=== PATIENT | female | born 1940 | race Caucasian/White ===

== ENCOUNTER 2016-11-22 08:00 | Outpatient (CLI) | payer MEDICARE, OTHER | END 2016-11-22 08:01 | disposition home or self-care (01) | DX: Z01.812 Encounter for preprocedural laboratory examination (principal); I10 Essential (primary) hypertension ==

== ENCOUNTER 2016-11-24 12:59 | Outpatient (CLI) | payer MEDICARE, OTHER | END 2016-11-24 13:00 | disposition home or self-care (01) | DX: Z78.0 Asymptomatic menopausal state (principal) ==

== ENCOUNTER 2016-12-06 07:30 | Inpatient (IN) | payer MEDICARE, OTHER ==
[2016-12-06] MEDS ORDERED: ceFAZolin 2 GM/50 ML 50 ML IV ONE (08:42)
[2016-12-06] MEDS ORDERED: LACTATED RINGERS 1,000 ML IV ONE ×2 (08:52→12:18)
[2016-12-06] MEDS ORDERED: PROPOFOL 200 MG/20 ML VIAL IVP ONE (11:08)
[2016-12-06] MEDS ORDERED: ONDANSETRON 4 MG/2 ML VIAL IVP ONE (11:08)
[2016-12-06] MEDS ORDERED: DEXAMETHASONE 4 MG/ML VIAL IVP ONE (11:08)
[2016-12-06] MEDS ORDERED: MIDAZOLAM 2 MG/2 ML VIAL IVP ONE (11:08)
[2016-12-06] MEDS ORDERED: MORPHINE PF 5 MG/10 ML AMP EP ONE (11:08)
[2016-12-06] MEDS ORDERED: GLYCOPYRROLATE 1 MG/5 ML VIAL IVP ONE (11:08)
[2016-12-06] MEDS ORDERED: LIDOCAINE-MPF 2% 5 ML VIAL IM ONE (11:08)
[2016-12-06] MEDS ORDERED: ePHEDrine 50 MG/ML AMP IVP ONE (11:08)
[2016-12-06] MEDS ORDERED: SODIUM CHLORIDE 0.9% 10 ML VIAL IV ONE (11:08)
[2016-12-06] MEDS ORDERED: TRANEXAMIC ACID 1,000 MG/10 ML VIAL IV ONE (11:08)
[2016-12-06] MEDS ORDERED: ROPIVACAINE 0.5% PF 20 ML AMPULE SUBQ ONE (12:06)
[2016-12-06] MEDS ORDERED: KETOROLAC 15 MG/ML VIAL IVP ONE ×2 (12:06)
[2016-12-06] MEDS ORDERED: MORPHINE PF 5 MG/10 ML AMP SUBQ ONE (12:07)
[2016-12-06] MEDS ORDERED: BUPIVACAINE 0.5% PF 30 ML VIAL SUBQ ONE ×2 (12:08)
[2016-12-06] MEDS ORDERED: EPINEPHrine 1 MG/ML AMP IVP ONE (12:08)
--- NOTE | 2016-12-06 13:31 | PROVIDER PROGRESS NOTE ---
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
[2016-12-06] MEDS ORDERED: HYDROmorphone 1 MG/ML SYRINGE IVP PRN (13:32)
[2016-12-06] MEDS ORDERED: SODIUM CHLORIDE FLUSH 0.9% 10 ML SYRINGE IVP PRN (13:32)
[2016-12-06] MEDS ORDERED: ACETAMINOPHEN 1,000 MG/100 ML 100 ML IV PRN (13:32)
[2016-12-06] MEDS ORDERED: BISACODYL 10 MG SUPP PR PRN (13:32)
[2016-12-06] MEDS: SODIUM CHLORIDE FLUSH 0.9% 10 ML SYRINGE IVP SCH ×2 (14:32→20:04)
[2016-12-06] MEDS: SODIUM CHLORIDE 0.45% 1,000 ML IV SCH (14:32)
[2016-12-06] MEDS: oxyCOD/ACETAMIN 5 MG/325 MG TABLET PO PRN ×2 (14:43→17:33)
--- NOTE | 2016-12-06 15:07 | OPERATIVE REPORT ---
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 NAME OF PROCEDURE: Revision of the right knee arthroplasty from an Corinth unicompartmental replacemen t to a cemented total knee replacement. SURGEON: Cinthya Solorzano MD ANESTHESIA: Spinal and general. INDICATIONS FOR SURGERY: The patient is a 76-year-old female who is status post an Corinth medial comp artment arthroplasty of her right knee who has had persistent pain in her knee, mainly in the lateral and patellofemoral joint since that time. She now desires revision of her knee to a total knee arthr oplasty, which has been the recommendation of me, as well as her original operating surgeon, Dr. Lady hedrick. The patient has persistent enlargement of the knee, swelling and effusion and walks with a limp. FINDINGS AT SURGERY: The patient's knee had a large, pale yellow synovial effusion. There was inflamm ation and synovitis noted. The patient's components were overgrown with some scar tissue but were yolanda rly easily removed with a small osteotome and a punch. There was very little cavitation in her bone l oss beneath the tibia. The patient had hypertrophic spurring of all of her knee compartments and aidee re articular cartilage degeneration in the lateral compartment and a posterior horn meniscal tear. Cr uciate ligament was intact. The patella had [id number] articulation on the underside of the patella . DESCRIPTION OF OPERATIVE PROCEDURE: The patient was taken to the operating room, was given a general anesthetic and spinal anesthetic. She was positioned supine on an OR table. Tourniquet was placed on her thigh. Her knee and leg were sterilely prepped and draped in standard fashion. After a timeout, t ourniquet was inflated to 350 mmHg. The incision was placed around the medial aspect of the knee thro ugh incorporating prior scar into the incision and resecting that initial broad scar. The incision wa s dissected down through soft tissue, at which point Ethibond suture remnants were identified in the incision and allowed further dissection through the medial capsule and into the knee. Some of the sof t tissue was debrided from around the front of the knee, and the patella was cut to facilitate exposu re, cutting it down from 25 to 16 mm and removing osteophytes from all the compartments. At this poin t, the knee was able to be flexed, and the intramedullary guide placed for the distal femoral cutting block, which was applied to the femur and fixed in place with pins, and the distal cut made. After t his, the retractors were positioned to expose the Corinth femoral component, and a careful osteotome w as used to pry this off the femur uneventfully. The remaining resection of bone incorporated the base of this and removed all cement. A 4 in 1 capture was applied and the cuts made for the femoral compo nent. The tibia was then exposed with retractors, the external tower applied, and the slope and depth of cut and rotation of cut was set for the proximal tibia. Prior to cutting the tibia, the poly had been extracted from the Corinth and the baseplate lifted using a small osteotome to free it up. The lo ose cement was removed, leaving behind a small amount of cement that was not chiseled out down in the trough area of where the implant had been. A very conservative cut was taken, and it seemed to leave only a small step off between lateral and medial compartments into an area where the Corinth had been , and when appropriate sizing was done for the tibial baseplate and broach preparation for the stemme d implant, it appeared that the impaction would leave a slightly thicker cement mantle that was encas ed in a rim of cortical bone and was satisfactory on that side, so preparation was made for cementing . After trial implantation, it was satisfactory. The trials were removed. The implants were opened, a nd cement was mixed. The sequence of cementing began first with the natural tibia base plate with 5 d egree stem size E was cemented in place. Then, the poly was added, which was a Persona articular surf dayanna medial congruent 14 mm height for size EF, followed by the Persona size 10 femur standard width. A stem had been applied to the tibial baseplate, and this was a 30 mm length tapered stem. The constr uct all cemented in place was stable, and all excess cement was removed. The patella was then cemente d in place and it being an all poly patella 32 mm diameter 8.5 mm thickness, and this restored the na tural height of the patella. The cement was allowed to harden. The knee was flushed thoroughly. Closu re was with FiberWire in the soft tissue, Vicryl closure of subcutaneous tissue out to Prolene closur e of skin. Prior to any closure, infiltration had been performed with a mix of Toradol, ropivacaine, Marcaine, saline and epinephrine. The patient's knee was carefully dressed, and the patient was taken to recovery room in stable condition. ESTIMATED BLOOD LOSS: Minimal. COMPLICATIONS: None. SPONGE AND NEEDLE COUNTS: Correct. JOB #: [id number] EXT JOB #:[id number]
--- NOTE | 2016-12-06 15:17 | XRAY Report ---
TWO-VIEW RIGHT KNEE: 12/06/2016 CLINICAL INDICATION: Hardware revision. COMPARISON: 11/21/2016 FINDINGS: Frontal and lateral views of the right knee demonstrate removal of the medial hemiarthropl asty and placement of a right total knee replacement. There is no evidence of fracture or hardware c omplication. Subcutaneous gas is noted. IMPRESSION: EXPECTED POSTOPERATIVE CHANGES OF REMOVAL OF MEDIAL HEMIARTHROPLASTY AND PLACEMENT OF A COMPLETE KNEE REPLACEMENT. JOB #: [id number] EXT JOB #:[id number]
[2016-12-06] MEDS: ceFAZolin 2 GM/50 ML 50 ML IV SCH (19:46)
[2016-12-06] MEDS: ASPIRIN 325 MG TABLET PO SCH (20:01)
[2016-12-06] MEDS: ONDANSETRON 4 MG/2 ML VIAL IVP PRN (20:29)
[2016-12-07] MEDS: SODIUM CHLORIDE 0.45% 1,000 ML IV SCH (00:25)
[2016-12-07] MEDS: oxyCOD/ACETAMIN 5 MG/325 MG TABLET PO PRN ×3 (02:13→08:28)
[2016-12-07] MEDS: ceFAZolin 2 GM/50 ML 50 ML IV SCH ×3 (02:14→17:27)
[2016-12-07] MEDS: SODIUM CHLORIDE FLUSH 0.9% 10 ML SYRINGE IVP SCH ×3 (04:55→22:07)
[2016-12-07 06:05] LABS: HCT - HEMATOCRIT 35.5 % (37.0-47.0); HGB - HEMOGLOBIN 12.2 g/dL (12.0-16.0)
[2016-12-07 06:17] LABS: CALCIUM 8.2 mg/dL (8.5-10.3); CREATININE 0.9 mg/dL (0.4-1.0); POTASSIUM 3.2 mmol/L (3.5-5.0)
[2016-12-07] MEDS: ASPIRIN 325 MG TABLET PO SCH ×2 (08:28→21:49)
[2016-12-07] MEDS: hydroCHLOROthiazide 25 MG TABLET PO SCH (08:28)
[2016-12-07] MEDS: NS W/20 MEQ KCL 1,000 ML IV SCH (09:23)
--- NOTE | 2016-12-07 09:49 | PROVIDER PROGRESS NOTE ---
Subjective - General Admit Date: 12/06/16 Procedure Date: 12/06/16 Post Op Days: 1 Procedure Performed: Revision Total Knee aRTHROPLASTY - Review of Systems Wound/Incisions: positive: Dressing dry and intact General: positive: Other (controlled pain in right knee) Musculoskeletal: positive: Joint pain, Joint swelling Objective - Patient Data Reviewed Vital Signs: Yes Vital Signs: Vital Signs x48h Temp Pulse Resp BP Pulse Ox 12/07/16 07:55 36.5 C 59 L 18 116/75 95 12/07/16 04:30 36.5 C 67 16 105/64 97 Intake & Output: Intake and Output Totals x24h 12/05/16 12/06/16 12/07/16 23:59 23:59 23:59 Intake Total 1920 1454 Output Total 1125 350 Balance 795 1104 - Lab Results Lab Results: 12/07/16 05:58 12/07/16 05:58 Other Lab Results: Lab Results x24hrs 12/07/16 12/07/16 Range/Units 05:58 05:58 Hgb 12.2 (12.0-16.0) g/dL Hct 35.5 L (37.0-47.0) % Sodium 131 L (135-145) mmol/L Potassium 3.2 L (3.5-5.0) mmol/L Chloride 97 L (101-111) mmol/L Carbon Dioxide 26 (21-32) mmol/L Anion Gap 8.0 (6-13) BUN 16 (6-20) mg/dL Creatinine 0.9 (0.4-1.0) mg/dL Estimated GFR (MDRD) 61 L (>89) Glucose 133 H (70-100) mg/dL Calcium 8.2 L (8.5-10.3) mg/dL - Imaging Results Radiology Imaging: positive: EMP read indepedently - Current Medications Current Medications: Current Medications Generic Name Dose Route Start Last Admin Trade Name Freq PRN Reason Stop Dose Admin Aspirin 325 mg 12/06/16 21:00 12/07/16 08:28 Bebe PO 325 mg BID LUIS ANGEL Administration Hydrochlorothiazide 25 mg 12/07/16 09:00 12/07/16 08:28 Hydrodiuril PO 25 mg DAILY LUIS ANGEL Administration Hydromorphone HCl 1 mg 12/06/16 13:32 12/06/16 19:54 Dilaudid Inj IVP 1 mg Q2HR PRN Administration Breakthrough Pain Acetaminophen 100 mls @ 400 mls/hr 12/06/16 13:32 12/06/16 16:06 Ofirmev IV 400 mls/hr Q6HR PRN Administration PAIN Potassium Chloride/Sodium Chloride 1,000 mls @ 80 mls/hr 12/07/16 09:00 09:23 Normal Saline 0.9% W/20 Meq Kcl IV 80 mls/hr .[id number] LUIS ANGEL Administration Cefazolin Sodium/Dextrose 50 mls @ 100 mls/hr 12/07/16 09:00 12/07/16 09:23 Ancef 2 Gm/50 Ml IV 12/10/16 05:00 100 mls/hr Q8H LUIS ANGEL Administration Ondansetron HCl 4 mg 12/06/16 13:32 12/06/16 20:29 Zofran Inj IVP 4 mg Q6HR PRN Administration Nausea / Vomiting Oxycodone/Acetaminophen 1 tab 12/06/16 13:32 12/07/16 08:28 Percocet 5 Mg/325 Mg PO 1 tab Q4HR PRN Administration PAIN Sodium Chloride 10 ml 12/06/16 14:00 12/07/16 07:12 Normal Saline Flush 0.9% IVP Not Given Q8HR LUIS ANGEL - Physical Exam Wound/Incisions: positive: Healing well, Dressing dry and intact General Appearance: positive: No acute distress Skin: positive: No rash, Warm, Dry Extremities: positive: No pedal edema, Joint swelling Neurologic/Psychiatric: positive: Motor nml, Sensation nml, Mood/affect nml (Lab : Gram stain with scant GM pos. cocci. May be contaminant) Impression/Plan - Problem List Problem List: POD #1 Pt is doing well with pain control. Lab result is definitely concerning. Will wait and watch for final culture IV fluids changed to correct electrolyte abnormalities IV ancef to continue until 48hr culture result available
[2016-12-07] MEDS: ONDANSETRON 4 MG/2 ML VIAL IVP PRN ×2 (09:57→16:17)
[2016-12-07] MEDS ORDERED: PROCHLORPERAZINE 5 MG TABLET PO PRN (11:40)
[2016-12-07] MEDS: HYDROcod/ACETAM 7.5 MG/325 MG TABLET PO PRN ×3 (13:14→21:49)
[2016-12-07] MEDS: CALCIUM CITRATE 250 MG TABLET PO SCH (14:32)
[2016-12-08] MEDS: ceFAZolin 2 GM/50 ML 50 ML IV SCH ×2 (01:24→08:41)
[2016-12-08] MEDS: HYDROcod/ACETAM 7.5 MG/325 MG TABLET PO PRN ×5 (04:49→20:43)
[2016-12-08 06:01] LABS: BASOPHILS # (AUTO) 0.1 10^3/uL (0.0-0.1); BASOPHILS % (AUTO) 0.7 %; EOSINOPHILS # (AUTO) 0.3 10^3/uL (0.0-0.7); EOSINOPHILS % (AUTO) 3.6 %; HCT - HEMATOCRIT 35.1 % (37.0-47.0); HGB - HEMOGLOBIN 11.8 g/dL (12.0-16.0); LYMPHOCYTES # (AUTO) 1.5 10^3/uL (1.5-3.5); LYMPHOCYTES % (AUTO) 16.1 %; MEAN CORPUSCULAR HEMOGLOBIN 31.3 pg (27.0-31.0); MEAN CORPUSCULAR HGB CONC 33.7 g/dL (32.0-36.0); MEAN PLATELET VOLUME 8.8 fL (7.9-10.8); MONOCYTES % (AUTO) 10.3 %; NEUTROPHILS # (AUTO) 6.6 10^3/uL (1.5-6.6); NEUTROPHILS % (AUTO) 69.3 %; RED BLOOD COUNT 3.77 10^6/uL (4.20-5.40); RED CELL DISTRIBUTION WIDTH 13.9 % (12.0-15.0); UNCORRECTED WHITE BLOOD COUNT 9.6 x10^3/uL; WHITE BLOOD COUNT 9.6 x10^3/uL (4.8-10.8)
[2016-12-08] MEDS: SODIUM CHLORIDE FLUSH 0.9% 10 ML SYRINGE IVP SCH ×3 (07:13→20:46)
--- NOTE | 2016-12-08 08:09 | PROVIDER PROGRESS NOTE ---
Subjective - General Admit Date: 12/06/16 Procedure Date: 12/06/16 Post Op Days: 2 Procedure Performed: Revision Total Knee aRTHROPLASTY - Review of Systems Wound/Incisions: positive: Healing well Musculoskeletal: positive: Joint pain, Joint swelling Objective - Patient Data Reviewed Vital Signs: Yes Vital Signs: Vital Signs x48h Temp Pulse Resp BP Pulse Ox 12/08/16 07:57 36.7 C 65 18 144/78 H 92 12/08/16 06:39 37.0 C 67 16 111/73 95 12/08/16 00:28 36.7 C 68 16 101/62 96 Intake & Output: Intake and Output Totals x24h 12/06/16 12/07/16 12/08/16 23:59 23:59 23:59 Intake Total 1920 2884 1272 Output Total 1125 2475 3200 Balance 795 409 -1928 - Lab Results Lab Results: 12/08/16 05:35 12/07/16 05:58 Other Lab Results: Lab Results x24hrs 12/08/16 12/08/16 12/08/16 Range/Units 05:35 05:35 05:35 WBC 9.6 (4.8-10.8) x10^3/uL RBC 3.77 L (4.20-5.40) 10^6/uL Hgb 11.8 L (12.0-16.0) g/dL Hct 35.1 L (37.0-47.0) % MCV 93.0 (81.0-99.0) fL MCH 31.3 H (27.0-31.0) pg MCHC 33.7 (32.0-36.0) g/dL RDW 13.9 (12.0-15.0) % Plt Count 223 (130-450) 10^3/uL MPV 8.8 (7.9-10.8) fL Neut # 6.6 (1.5-6.6) 10^3/uL Lymph # 1.5 (1.5-3.5) 10^3/uL [place] # 1.0 (0.0-1.0) 10^3/uL Eos # 0.3 (0.0-0.7) 10^3/uL Baso # 0.1 (0.0-0.1) 10^3/uL Absolute Nucleated RBC 0.00 x10^3/uL Nucleated RBCs 0.0 /100WBC ESR 40 H (0-30) mm/Hr C-Reactive Protein 6.4 H (0-1.0) mg/dL - Current Medications Current Medications: Current Medications Generic Name Dose Route Start Last Admin Trade Name Freq PRN Reason Stop Dose Admin Acetaminophen/Hydrocodone Bitart 1 tab 12/07/16 11:39 12/08/16 04:49 [place] 7.5/325 PO 1 tab Q4HR PRN Administration PAIN Aspirin 325 mg 12/06/16 21:00 12/07/16 21:49 Beeb PO 325 mg BID LUIS ANGEL Administration Calcium Citrate 250 mg 12/07/16 10:30 12/07/16 14:32 PO 250 mg DAILY LUIS ANGEL Administration Hydrochlorothiazide 25 mg 12/07/16 09:00 12/07/16 08:28 Hydrodiuril PO 25 mg DAILY LUIS ANGEL Administration Acetaminophen 100 mls @ 400 mls/hr 12/06/16 13:32 12/06/16 16:06 Ofirmev IV 400 mls/hr Q6HR PRN Administration PAIN Potassium Chloride/Sodium Chloride 1,000 mls @ 80 mls/hr 12/07/16 09:00 09:23 Normal Saline 0.9% W/20 Meq Kcl IV 80 mls/hr .[id number] LUIS ANGEL Administration Cefazolin Sodium/Dextrose 50 mls @ 100 mls/hr 12/07/16 09:00 12/08/16 01:24 Ancef 2 Gm/50 Ml IV 12/10/16 05:00 100 mls/hr Q8H LUIS ANGEL Administration Ondansetron HCl 4 mg 12/06/16 13:32 12/07/16 16:17 Zofran Inj IVP 4 mg Q6HR PRN Administration Nausea / Vomiting Prochlorperazine Maleate 5 mg 12/07/16 11:40 12/07/16 11:52 Compazine PO 5 mg Q6HR PRN Administration Nausea / Vomiting Sodium Chloride 10 ml 12/06/16 14:00 12/08/16 07:13 Normal Saline Flush 0.9% IVP Not Given Q8HR LUIS ANGEL - Physical Exam Wound/Incisions: positive: Healing well General Appearance: positive: No acute distress Skin: positive: No rash, Warm, Dry Neurologic/Psychiatric: positive: Motor nml, Sensation nml, Mood/affect nml Impression/Plan - Problem List Problem List: POD #2 Pt is improving and having less pain. Wound healing well at dressing change today. Plan continued PT. Culture Neg. at 24hrs. Will monitor and d/c Ancef after today's result if negative.
[2016-12-08] MEDS: CALCIUM CITRATE 250 MG TABLET PO SCH (08:41)
[2016-12-08] MEDS: ASPIRIN 325 MG TABLET PO SCH ×2 (08:41→20:43)
[2016-12-08] MEDS: SENNA 8.6 MG TABLET PO PRN ×2 (08:41→20:44)
[2016-12-08] MEDS: hydroCHLOROthiazide 25 MG TABLET PO SCH (08:42)
[2016-12-08] MEDS: ACETAMINOPHEN 325 MG TABLET PO PRN ×2 (10:27→18:25)
[2016-12-08] MEDS: NS W/20 MEQ KCL 1,000 ML IV SCH ×3 (10:31→20:46)
[2016-12-09] MEDS: NS W/20 MEQ KCL 1,000 ML IV SCH ×2 (07:43→20:04)
[2016-12-09] MEDS: ASPIRIN 325 MG TABLET PO SCH ×2 (08:26→20:03)
[2016-12-09] MEDS: hydroCHLOROthiazide 25 MG TABLET PO SCH (08:26)
[2016-12-09] MEDS: CALCIUM CITRATE 250 MG TABLET PO SCH (08:26)
[2016-12-09] MEDS: SODIUM CHLORIDE FLUSH 0.9% 10 ML SYRINGE IVP SCH ×2 (08:27→20:04)
--- NOTE | 2016-12-09 09:39 | PROVIDER PROGRESS NOTE ---
Subjective - General Admit Date: 12/06/16 Procedure Date: 12/06/16 Post Op Days: 3 Procedure Performed: Revision Total Knee aRTHROPLASTY - Review of Systems Wound/Incisions: positive: Healing well General: positive: Other (controlled pain in right knee) Musculoskeletal: positive: Joint pain, Joint swelling Objective - Patient Data Reviewed Vital Signs: Yes Vital Signs: Vital Signs x48h Temp Pulse Resp BP Pulse Ox 12/09/16 08:00 36.6 C 66 20 137/75 H 94 12/09/16 04:59 36.7 C 64 16 144/83 H 95 Intake & Output: Intake and Output Totals x24h 12/07/16 12/08/16 12/09/16 23:59 23:59 23:59 Intake Total 2884 2532 840 Output Total 2475 3200 Balance 409 -668 840 - Lab Results Lab Results: 12/08/16 05:35 12/07/16 05:58 - Current Medications Current Medications: Current Medications Generic Name Dose Route Start Last Admin Trade Name Freq PRN Reason Stop Dose Admin Acetaminophen 650 - 975 mg 12/06/16 13:32 12/08/16 18:25 Tylenol PO 650 mg Q4HR PRN Administration PAIN Acetaminophen/Hydrocodone Bitart 1 tab 12/07/16 11:39 12/08/16 20:43 [place] 7.5/325 PO 1 tab Q4HR PRN Administration PAIN Aspirin 325 mg 12/06/16 21:00 12/09/16 08:26 Bebe PO 325 mg BID LUIS ANGEL Administration Calcium Citrate 250 mg 12/07/16 10:30 12/09/16 08:26 PO 250 mg DAILY LUIS ANGEL Administration Hydrochlorothiazide 25 mg 12/07/16 09:00 12/09/16 08:26 Hydrodiuril PO 25 mg DAILY LUIS ANGEL Administration Acetaminophen 100 mls @ 400 mls/hr 12/06/16 13:32 12/06/16 16:06 Ofirmev IV 400 mls/hr Q6HR PRN Administration PAIN Potassium Chloride/Sodium Chloride 1,000 mls @ 80 mls/hr 12/07/16 09:00 07:43 Normal Saline 0.9% W/20 Meq Kcl IV Not Given .[id number] LUIS ANGEL Ondansetron HCl 4 mg 12/06/16 13:32 12/07/16 16:17 Zofran Inj IVP 4 mg Q6HR PRN Administration Nausea / Vomiting Prochlorperazine Maleate 5 mg 12/07/16 11:40 12/07/16 11:52 Compazine PO 5 mg Q6HR PRN Administration Nausea / Vomiting Senna 17.2 mg 12/06/16 13:32 12/08/16 20:44 Senokot PO 17.2 mg Q12H PRN Administration Constipation Sodium Chloride 10 ml 12/06/16 14:00 12/09/16 08:27 Normal Saline Flush 0.9% IVP Not Given Q8HR LUIS ANGEL - Physical Exam Wound/Incisions: positive: Healing well Neurologic/Psychiatric: positive: Sensation nml, Mood/affect nml Impression/Plan - Problem List Problem List: POD # 3 Pt is progressing but more PT required for stairs and independent Wound OK D/C Antibiotics with cultures negative.
[2016-12-09] MEDS: HYDROcod/ACETAM 7.5 MG/325 MG TABLET PO PRN ×2 (09:45→20:03)
[2016-12-09] MEDS: SENNA 8.6 MG TABLET PO PRN (12:18)
[2016-12-10] MEDS: SODIUM CHLORIDE FLUSH 0.9% 10 ML SYRINGE IVP SCH (06:16)
--- NOTE | 2016-12-10 08:56 | Discharge Plan ---
Discharge Plan Disposition: Home, Self Care Condition: Good Prescriptions: HYDROcodone/ACET 7.5/325 [[place] 7.5/325] 1 tab PO Q4HR PRN #60 tablet PRN Reason: Pain Aspirin [Bebe] 325 mg PO BID #30 tablet Senna [Senokot] 17.2 mg PO Q12H PRN #14 tablet PRN Reason: Constipation Diet: Regular Activity Restrictions: Wt Bearing as Tolerated Shower Restrictions: Yes (with wound covered) Driving Restrictions: Yes (no driving) Weight Bearing: Other (weight bearing as tolerated) Additional Instructions or Follow Up instructions: Dressing to remain intact, clean and dry Elevate limb prn continue with home exercises to right knee No Smoking: If you smoke, Please STOP! Call for help. Follow-up with: Trisha Tanner DO [Primary Care Provider] - Cinthya Solorzano MD [Provider Admit Priv/Credential] -
[2016-12-10 09:28] VITALS: BP 131/75
[2016-12-10] MEDS: HYDROcod/ACETAM 7.5 MG/325 MG TABLET PO PRN (09:34)
[2016-12-10] MEDS: CALCIUM CITRATE 250 MG TABLET PO SCH (09:34)
[2016-12-10] MEDS: NS W/20 MEQ KCL 1,000 ML IV SCH (09:34)
[2016-12-10] MEDS: ASPIRIN 325 MG TABLET PO SCH (09:34)
[2016-12-10] MEDS: hydroCHLOROthiazide 25 MG TABLET PO SCH (09:34)
[2016-12-19] MEDS ORDERED: SODIUM CHLORIDE FLUSH 0.9% 10 ML SYRINGE IVP PRN (09:39)
[2016-12-19] MEDS ORDERED: VANCOMYCIN PER PHARMACY 0 GM in SODIUM CHLORIDE 0.9% 250 ML IV SCH (10:00)
[2016-12-19] MEDS ORDERED: SODIUM CHLORIDE 0.9% 1,000 ML IV SCH (10:00)
[2016-12-19] MEDS ORDERED: SODIUM CHLORIDE FLUSH 0.9% 10 ML SYRINGE IVP SCH (14:00)
--- NOTE | 2016-12-20 05:48 | DISCHARGE SUMMARY ---
DATE OF ADMISSION: 12/06/2016 DATE OF DISCHARGE: 12/10/2016 ADMISSION DIAGNOSIS: Failed right knee [place] hemiarthroplasty. POSTOPERATIVE DIAGNOSIS: Failed right knee [place] hemiarthroplasty. PROCEDURE: On 12/06/2016, a right knee conversion of partial knee arthroplasty to revision total knee arthroplasty. REASON FOR ADMISSION: The patient is a 76-year-old female who 2 years ago underwent a partial knee re placement of the right knee and subsequent to this had uneventful wound healing, but had ongoing diff use knee pain that was not responding to nonoperative management by 2 different orthopedic surgeons. Ultimately, the advice and opinion of both surgeons was that the patient should have revision of her partial knee to a total knee arthroplasty and the patient was appropriately informed, consented, and prepared for surgery. HOSPITAL COURSE: The patient was admitted on 12/06/2016 and underwent an uneventful surgery, which wa s a revision of a hemiarthroplasty of her right knee to a total knee arthroplasty. In the postoperati ve period, the patient returned to the floor and received standard care post total knee arthroplasty including early mobilization with therapy, as well as IV antibiotic coverage, monitoring her vital si gns and labs. The patient was placed on aspirin 325 mg b.i.d. for prophylaxis of DVT. The patient ear ly on had initial Gram stain results suggesting gram-positive cocci and therefore IV antibiotics were continued to be on 24 hours, as cultures were allowed to be followed out to 48 hours. These were no growth. It was felt that the laboratory result might have been a contamination and the patient at dis charge was able to get up independently and go to the bathroom. She was not having severe knee pain a nd her wound was healing fine. There was no evidence that she was having any issue with infection or wound healing. Plan at discharge was for her to be sent home with pain medicine and aspirin and laxat susi and followed up in the office within 5 days. She was to have a Silverlon dressing on her knee th at was left in place until clinic followup. JOB #: [id number] EXT JOB #:[id number]
== END 2016-12-10 10:12 | disposition home or self-care (01) | DRG 468 ==
LOC: MS 08:31
PROVIDERS: ADMIT Orthopaedic Surgery; ATTEND Orthopaedic Surgery
PROC: 0SRC0J9 Replacement of Right Knee Joint with Synthetic Substitute, Cemented, Open Approach (ICD-10-PCS; principal; 2016-12-06 09:45)
PROC: 0SPT0JZ Removal of Synthetic Substitute from Right Knee Joint, Femoral Surface, Open Approach (ICD-10-PCS; principal; 2016-12-06 09:45)
PROC: 0SUC09Z Supplement Right Knee Joint with Liner, Open Approach (ICD-10-PCS; principal; 2016-12-06 09:45)
PROC: 0SPC09Z Removal of Liner from Right Knee Joint, Open Approach (ICD-10-PCS; principal; 2016-12-06 09:45)
DX: T84.84XA Pain due to internal orthopedic prosthetic devices, implants and grafts, initial encounter (principal); M23.91 Unspecified internal derangement of right knee; I10 Essential (primary) hypertension; E66.3 Overweight; Z68.38 Body mass index [BMI] 38.0-38.9, adult; Z96.651 Presence of right artificial knee joint
CPT/HCPCS: 36415; 80048; 80053; 85014; 85018; 85025; 85651; 86140; 86850; 86900; 86901; 87070; 87075; 87205

== ENCOUNTER 2016-12-19 09:30 | Outpatient (CLI) | payer MEDICARE, OTHER | END 2016-12-19 09:31 | disposition home or self-care (01) | DX: T84.53XA Infection and inflammatory reaction due to internal right knee prosthesis, initial encounter (principal) ==

== ENCOUNTER 2016-12-19 10:40 | Inpatient (IN) | payer MEDICARE, OTHER ==
[2016-12-19] MEDS ORDERED: SODIUM CHLORIDE FLUSH 0.9% 10 ML SYRINGE IVP PRN ×2 (10:42→10:57)
[2016-12-19] MEDS ORDERED: SODIUM CHLORIDE 0.9% 1,000 ML IV SCH ×2 (11:00)
[2016-12-19] MEDS ORDERED: VANCOMYCIN PER PHARMACY 0 GM in SODIUM CHLORIDE 0.9% 250 ML IV SCH (11:00)
[2016-12-19] MEDS ORDERED: VANCOMYCIN INJ 1 GM, VANCOMYCIN INJ 500 MG in SODIUM CHLORIDE 0.9% 500 ML IV SCH ×2 (13:00→17:06)
[2016-12-19] MEDS ORDERED: SODIUM CHLORIDE FLUSH 0.9% 10 ML SYRINGE IVP SCH ×2 (14:00)
[2016-12-19] MEDS ORDERED: HYDROcod/ACETAM 7.5 MG/325 MG TABLET PO PRN (14:07)
[2016-12-19] MEDS ORDERED: SENNA 8.6 MG TABLET PO PRN ×2 (14:07→17:06)
[2016-12-19] MEDS ORDERED: fentaNYL 100 MCG/2 ML VIAL IVP ONE (15:15)
[2016-12-19] MEDS ORDERED: MIDAZOLAM 2 MG/2 ML VIAL IVP ONE (15:15)
[2016-12-19] MEDS ORDERED: LACTATED RINGERS 1,000 ML IV ONE (15:59)
[2016-12-19] MEDS: HYDROmorphone 1 MG/ML SYRINGE ONE ×2 (17:05→17:24)
[2016-12-19] MEDS ORDERED: ONDANSETRON 4 MG/2 ML VIAL IVP PRN (17:08)
[2016-12-19] MEDS: HYDROcod/ACETAM 7.5 MG/325 MG TABLET PO PRN ×2 (18:14→22:26)
[2016-12-19] MEDS: SODIUM CHLORIDE 0.9% 1,000 ML IV SCH (18:15)
[2016-12-19] MEDS: MORPHINE 2 MG/ML SYRINGE IVP PRN ×2 (19:37→22:26)
[2016-12-20] MEDS: MORPHINE 2 MG/ML SYRINGE IVP PRN ×7 (00:45→19:21)
[2016-12-20] MEDS: HYDROcod/ACETAM 7.5 MG/325 MG TABLET PO PRN ×6 (02:32→23:52)
[2016-12-20] MEDS: SODIUM CHLORIDE FLUSH 0.9% 10 ML SYRINGE IVP PRN ×2 (03:57→09:03)
[2016-12-20] MEDS: VANCOMYCIN INJ 1 GM, VANCOMYCIN INJ 250 MG in SODIUM CHLORIDE 0.9% 250 ML IV SCH ×2 (03:57→16:07)
[2016-12-20] MEDS ORDERED: MULTIVITAMIN TABLET PO SCH (08:00)
[2016-12-20] MEDS ORDERED: hydroCHLOROthiazide 25 MG TABLET PO SCH (09:00)
[2016-12-20] MEDS: SODIUM CHLORIDE 0.9% 1,000 ML IV SCH ×3 (09:02→19:37)
[2016-12-20] MEDS: hydroCHLOROthiazide 25 MG TABLET PO SCH (09:02)
[2016-12-20] MEDS: MULTIVITAMIN TABLET PO SCH (09:02)
[2016-12-20] MEDS: POTASSIUM CHLORIDE 20 MEQ TABLET PO SCH (11:16)
[2016-12-20] MEDS: ENOXAPARIN 30 MG/0.3 ML SYRINGE SUBQ SCH (11:16)
[2016-12-21] MEDS: HYDROcod/ACETAM 7.5 MG/325 MG TABLET PO PRN ×3 (04:02→19:10)
[2016-12-21] MEDS: VANCOMYCIN INJ 1 GM, VANCOMYCIN INJ 250 MG in SODIUM CHLORIDE 0.9% 250 ML IV SCH ×2 (04:19→16:27)
[2016-12-21] MEDS: DOCUSATE SODIUM 250 MG CAPSULE PO SCH (08:48)
[2016-12-21] MEDS: hydroCHLOROthiazide 25 MG TABLET PO SCH (08:49)
[2016-12-21] MEDS: SENNA 8.6 MG TABLET PO SCH (08:49)
[2016-12-21] MEDS: MULTIVITAMIN TABLET PO SCH (08:49)
[2016-12-21] MEDS: POTASSIUM CHLORIDE 20 MEQ TABLET PO SCH (08:49)
[2016-12-21] MEDS: ENOXAPARIN 30 MG/0.3 ML SYRINGE SUBQ SCH (08:52)
[2016-12-21] MEDS ORDERED: POLYETHYLENE GLYCOL 3350 17 GM PACKET PO ONE (09:00)
[2016-12-21] MEDS ORDERED: POLYETHYLENE GLYCOL 3350 17 GM PACKET PO SCH (09:00)
[2016-12-21] MEDS: SODIUM CHLORIDE FLUSH 0.9% 10 ML SYRINGE IVP PRN (10:40)
[2016-12-21] MEDS: MORPHINE 2 MG/ML SYRINGE IVP PRN (16:25)
[2016-12-22] MEDS: VANCOMYCIN INJ 1 GM, VANCOMYCIN INJ 250 MG in SODIUM CHLORIDE 0.9% 250 ML IV SCH (04:03)
[2016-12-22] MEDS: HYDROcod/ACETAM 7.5 MG/325 MG TABLET PO PRN ×2 (04:10→09:37)
[2016-12-22] MEDS: ENOXAPARIN 30 MG/0.3 ML SYRINGE SUBQ SCH (08:32)
[2016-12-22] MEDS: POTASSIUM CHLORIDE 20 MEQ TABLET PO SCH (08:33)
[2016-12-22] MEDS: hydroCHLOROthiazide 25 MG TABLET PO SCH (08:34)
[2016-12-22] MEDS: MULTIVITAMIN TABLET PO SCH (08:35)
[2016-12-22] MEDS: DOCUSATE SODIUM 250 MG CAPSULE PO SCH (08:39)
[2016-12-22] MEDS: SENNA 8.6 MG TABLET PO SCH (08:41)
== END 2016-12-22 10:42 | disposition home or self-care (01) | DRG 502 ==
PROC: 02HV33Z Insertion of Infusion Device into Superior Vena Cava, Percutaneous Approach (ICD-10-PCS; principal; 2016-12-19 14:35)
PROC: 0JDN0ZZ Extraction of Right Lower Leg Subcutaneous Tissue and Fascia, Open Approach (ICD-10-PCS; principal; 2016-12-19 14:35)
DX: T84.89XA Other specified complication of internal orthopedic prosthetic devices, implants and grafts, initial encounter (principal); Y83.8 Other surgical procedures as the cause of abnormal reaction of the patient, or of later complication, without mention of misadventure at the time of the procedure; I10 Essential (primary) hypertension; E78.5 Hyperlipidemia, unspecified; Z96.653 Presence of artificial knee joint, bilateral; Z88.0 Allergy status to penicillin

== ENCOUNTER 2017-01-13 08:34 | Outpatient (CLI) | payer MEDICARE, OTHER | END 2017-01-13 08:35 | disposition home or self-care (01) | DX: M13.861 Other specified arthritis, right knee (principal); Z96.651 Presence of right artificial knee joint ==

== ENCOUNTER 2017-05-30 14:57 | Outpatient (CLI) | payer MEDICARE, OTHER ==
--- NOTE | 2017-05-30 17:15 | CT Preliminary Report ---
Exam: CT Abdomen/Pelvis W/O IMPRESSION: 1. No evidence for stones, hydronephrosis or other source for patient's complaint of hematuria. 2. Sigmoid colonic diverticulosis without CT evidence for diverticulitis or abscess formation. No inf lammatory changes in the pelvis. [facility] SITE ID: [id number]
--- NOTE | 2017-05-30 17:50 | CT Report ---
EXAM: CT ABDOMEN AND PELVIS (CT KUB) EXAM DATE: 05/30/2017 04:53 PM. CLINICAL HISTORY: Hematuria. COMPARISONS: 05/09/2016. TECHNIQUE: Routine axial helical CT imaging was performed through the abdomen and pelvis without IV c ontrast. Reconstructions: Coronal and sagittal. In accordance with CT protocol optimization, one or more of the following dose reduction techniques w ere utilized for this exam: automated exposure control, adjustment of mA and/or KV based on patient s ize, or use of iterative reconstructive technique. FINDINGS: Lung Bases: Unremarkable. Right Kidney/Ureter: No stones, hydronephrosis, or hydroureter. No perinephric fat stranding. Left Kidney/Ureter: No stones, hydronephrosis, or hydroureter. No perinephric fat stranding. Other Solid Organs: Noncontrast images of the solid organs are grossly unremarkable. Gallbladder/Bile Ducts: Unremarkable. Peritoneal Cavity: Sigmoid colonic diverticulosis is present without CT evidence for diverticulitis o r abscess formation. No inflammatory changes in the abdomen or pelvis. Pelvic Organs: Uterus and adnexal structures are either very small or have been removed. No pelvic ma sses. Vasculature: Unremarkable. Other: Multilevel lower lumbar spine facet arthropathy and degenerative disk disease. IMPRESSION: 1. No evidence for stones, hydronephrosis or other source for patient's complaint of hematuria. 2. Sigmoid colonic diverticulosis without CT evidence for diverticulitis or abscess formation. No inf lammatory changes in the pelvis. [facility] Referring Provider Line: [phone] SITE ID: [id number]
== END 2017-05-30 14:58 | disposition home or self-care (01) ==
LOC: DI 14:57
PROVIDERS: ATTEND Physician Assistant Medical
DX: R31.9 Hematuria, unspecified (principal); K57.30 Diverticulosis of large intestine without perforation or abscess without bleeding
CPT/HCPCS: 74176; 87086

== ENCOUNTER 2017-06-08 20:53 | Outpatient (CLI) | payer MEDICARE, OTHER ==
[2017-06-08 18:57] LABS: BILIRUBIN,URINE NEGATIVE (NEGATIVE); PH,URINE 7.5 PH (5.0-7.5)
[2017-06-08 19:02] LABS: WBC,URINE 0-3 /HPF (0-5)
== END 2017-06-08 20:54 | disposition home or self-care (01) ==
LOC: LAB.WCP 20:53
PROVIDERS: ATTEND Physician Assistant Medical
DX: R31.9 Hematuria, unspecified (principal)
CPT/HCPCS: 81001

== ENCOUNTER 2017-09-20 13:30 | Outpatient (CLI) | payer MEDICARE, OTHER | END 2017-09-20 13:31 | disposition home or self-care (01) | LOC: LAB.R 13:30 | PROVIDERS: ATTEND Family Medicine | DX: R19.7 Diarrhea, unspecified (principal) | CPT/HCPCS: 87045; 87046; 87177; 87209 ==

== ENCOUNTER 2018-02-14 08:00 | Outpatient (CLI) | payer MEDICARE, OTHER ==
[2018-02-14 13:00] LABS: BASOPHILS % (AUTO) 0.7 %; EOSINOPHILS # (AUTO) 0.2 10^3/uL (0.0-0.7); EOSINOPHILS % (AUTO) 2.9 %; HGB - HEMOGLOBIN 15.4 g/dL (12.0-16.0); LYMPHOCYTES # (AUTO) 1.2 10^3/uL (1.5-3.5); LYMPHOCYTES % (AUTO) 19.7 %; MEAN CORPUSCULAR HEMOGLOBIN 31.2 pg (27.0-31.0); MEAN CORPUSCULAR HGB CONC 34.2 g/dL (32.0-36.0); MEAN CORPUSCULAR VOLUME 91.4 fL (81.0-99.0); MEAN PLATELET VOLUME 8.6 fL (7.9-10.8); MONOCYTES # (AUTO) 0.6 10^3/uL (0.0-1.0); MONOCYTES % (AUTO) 9.3 %; NEUTROPHILS # (AUTO) 4.2 10^3/uL (1.5-6.6); NEUTROPHILS % (AUTO) 67.4 %; PLT - PLATELET COUNT 269 10^3/uL (130-450); RED BLOOD COUNT 4.92 10^6/uL (4.20-5.40); RED CELL DISTRIBUTION WIDTH 15.5 % (12.0-15.0); WHITE BLOOD COUNT 6.2 x10^3/uL (4.8-10.8)
[2018-02-14 13:34] LABS: ALBUMIN/GLOBULIN RATIO 1.4 (1.0-2.2); ALKALINE PHOSPHATASE 59 IU/L (42-121); ALT ALANINE AMINOTRANSFERASE 28 IU/L (10-60); AST ASPARTATE AMINOTRANSFERASE 38 IU/L (10-42); BILIRUBIN,TOTAL 0.7 mg/dL (0.2-1.0); BUN - BLOOD UREA NITROGEN 15 mg/dL (6-20); CALCIUM 9.4 mg/dL (8.5-10.3); CARBON DIOXIDE - CO2 24 mmol/L (21-32); CHLORIDE 103 mmol/L (101-111); CHOL/HDL RATIO 3.9 (<4.4); CHOLESTEROL 171 mg/dL; CREATININE 1.1 mg/dL (0.4-1.0); GFR - MDRD 48 (>89); GLUCOSE 107 mg/dL (70-100); HDL CHOLESTEROL 44 mg/dL; LDL CHOLESTEROL,CALCULATED 86 mg/dL; MAGNESIUM 2.1 mg/dL (1.7-2.8); SODIUM 135 mmol/L (135-145); TOTAL PROTEIN 6.9 g/dL (6.7-8.2); VLDL CHOLESTEROL 41 mg/dL
== END 2018-02-14 08:01 ==
LOC: LAB.WCP 08:00
PROVIDERS: ATTEND Family Medicine
DX: I10 Essential (primary) hypertension (principal); E78.5 Hyperlipidemia, unspecified; K21.9 Gastro-esophageal reflux disease without esophagitis
CPT/HCPCS: 36415; 80053; 80061; 83721; 83735; 85025

== ENCOUNTER 2018-10-11 09:17 | Outpatient (CLI) | payer MEDICARE, OTHER | END 2018-10-11 09:18 | disposition home or self-care (01) | LOC: DI 09:17 | PROVIDERS: ATTEND Family Medicine | DX: R55 Syncope and collapse (principal); I35.8 Other nonrheumatic aortic valve disorders; I35.1 Nonrheumatic aortic (valve) insufficiency; I34.1 Nonrheumatic mitral (valve) prolapse | CPT/HCPCS: 93306 ==

== ENCOUNTER 2018-11-29 09:11 | Day surgery (SDC) | payer MEDICARE, OTHER ==
[2018-11-29] MEDS ORDERED: LACTATED RINGERS 1,000 ML IV ONE ×2 (10:16→10:50)
[2018-11-29] MEDS ORDERED: fentaNYL 100 MCG/2 ML VIAL IVP ONE (10:41)
[2018-11-29] MEDS ORDERED: MIDAZOLAM 2 MG/2 ML VIAL IVP ONE (10:41)
[2018-11-29 11:17] VITALS: BP 114/53
== END 2018-11-29 09:12 | disposition home or self-care (01) ==
LOC: SDS 09:11
PROVIDERS: ATTEND Internal Medicine Gastroenterology
PROC: 0DJD8ZZ Inspection of Lower Intestinal Tract, Via Natural or Artificial Opening Endoscopic (ICD-10-PCS; principal; 2018-11-29 10:15)
DX: K21.9 Gastro-esophageal reflux disease without esophagitis (principal); K57.30 Diverticulosis of large intestine without perforation or abscess without bleeding; I10 Essential (primary) hypertension; H81.10 Benign paroxysmal vertigo, unspecified ear; E78.5 Hyperlipidemia, unspecified; E66.9 Obesity, unspecified; Z68.34 Body mass index [BMI] 34.0-34.9, adult; G89.29 Other chronic pain; M54.9 Dorsalgia, unspecified; M47.892 Other spondylosis, cervical region; M47.814 Spondylosis without myelopathy or radiculopathy, thoracic region; Z79.82 Long term (current) use of aspirin
CPT/HCPCS: G0105; J7120

== ENCOUNTER 2019-05-17 08:00 | Outpatient (CLI) | payer MEDICARE, OTHER ==
[2019-05-17 19:36] LABS: ALBUMIN/GLOBULIN RATIO 1.2 (1.0-2.2); ALKALINE PHOSPHATASE 75 IU/L (42-121); ALT ALANINE AMINOTRANSFERASE 23 IU/L (10-60); AST ASPARTATE AMINOTRANSFERASE 29 IU/L (10-42); BILIRUBIN,TOTAL 0.4 mg/dL (0.2-1.0); BUN - BLOOD UREA NITROGEN 10 mg/dL (6-20); CALCIUM 9.5 mg/dL (8.5-10.3); CARBON DIOXIDE - CO2 22 mmol/L (21-32); CHLORIDE 101 mmol/L (101-111); CHOLESTEROL 207 mg/dL; CREATININE 0.8 mg/dL (0.4-1.0); GFR - MDRD 69 (>89); GLUCOSE 81 mg/dL (70-100); HDL CHOLESTEROL 41 mg/dL; LDL CHOLESTEROL,CALCULATED 130 mg/dL; LDL/HDL RATIO 3.2 (<4.4); SODIUM 135 mmol/L (135-145); TOTAL PROTEIN 7.3 g/dL (6.7-8.2); VLDL CHOLESTEROL 36 mg/dL
== END 2019-05-17 23:59 | disposition home or self-care (01) ==
LOC: LAB.WCP 08:00
PROVIDERS: ATTEND Family Medicine
DX: I10 Essential (primary) hypertension (principal); E78.5 Hyperlipidemia, unspecified; K21.9 Gastro-esophageal reflux disease without esophagitis
CPT/HCPCS: 36415; 80053; 80061; 83721; 84443; 85025

== ENCOUNTER 2019-09-05 10:07 | Outpatient (CLI) | payer MEDICARE, OTHER ==
--- NOTE | 2019-09-06 13:32 | Mammography Report ---
Reason: ROUTINE MAMMO Procedure Date: 09/05/2019 Accession Number: [id number] / [id number] Procedure: MGN - Screening Mammo Dig Bilat CPT Code: Final Report FULL RESULT: EXAM: Screening Mammo Dig Bilat DATE: 09/05/2019 10:33 AM CLINICAL HISTORY: Routine screening. History of benign biopsy. TECHNIQUE: (B) - Bilateral CC and MLO views were obtained. COMPARISON: 09/08/2017, 03/09/2016, 12/18/2014, 07/12/2013, 06/29/2012, 05/17/2011, 04/21/2010 PARENCHYMAL PATTERN: (A) - The breasts demonstrate scattered fibroglandular densities bilaterally. FINDINGS: No significant interval change. There are no suspicious masses, calcifications, or areas of distortion. IMPRESSION: Negative examination. BI-RADS category 1. RECOMMENDATION: (ANNUAL) - Recommend routine annual screening mammography. BI-RADS CATEGORY: (1) - Negative. STANDARD QUALIFYING STATEMENTS: 1. This examination was not reviewed with the aid of Computer-Aided Detection (CAD). 2. A negative or benign imaging report should not preclude biopsy if clinically suspicious findings are present. 3. Dense breasts may obscure an underlying neoplasm. 4. This examination was reviewed without the aid of 3D breast imaging (tomosynthesis).
== END 2019-09-05 10:08 | disposition home or self-care (01) ==
LOC: DI.N 10:07
DX: Z12.31 Encounter for screening mammogram for malignant neoplasm of breast (principal)
CPT/HCPCS: 77067

== ENCOUNTER 2020-01-29 09:04 | Outpatient (CLI) | payer MEDICARE, OTHER | END 2020-01-29 09:05 | disposition home or self-care (01) | LOC: DI 09:04 | PROVIDERS: ATTEND Family Medicine | DX: I35.1 Nonrheumatic aortic (valve) insufficiency (principal); R55 Syncope and collapse | CPT/HCPCS: 93306 ==

== ENCOUNTER 2020-03-16 10:45 | Outpatient (CLI) | payer MEDICARE, OTHER ==
--- NOTE | 2020-03-16 14:44 | CT Report ---
Reason: MASS OF RIGHT SHOULDER JOINT Procedure Date: 03/16/2020 Accession Number: [id number] / [id number] Procedure: CT - UPPER EXTREMITY WO - RT CPT Code: Final Report FULL RESULT: EXAM: RIGHT ELBOW CT WITHOUT CONTRAST EXAM DATE: 03/16/2020 11:06 AM. CLINICAL HISTORY: Mass of right shoulder joint. COMPARISON: None. TECHNIQUE: Thin-section axial images were acquired of the elbow without contrast. Post-processing: Coronal and sagittal reformats. Other: None. In accordance with CT protocol optimization, one or more of the following dose reduction techniques were utilized for this exam: automated exposure control, adjustment of mA and/or KV based on patient size, or use of iterative reconstructive technique. FINDINGS: Bones: No visible fracture or focal bony lesion. Joints: There is joint space narrowing with osteophyte formation and subchondral cyst formation in the acromioclavicular joint consistent with moderate osteoarthritis. Inferiorly projecting osteophytes narrow the subacromial space. There is superior subluxation of the humeral head. There are large humeral head and bony glenoid osteophytes with moderate narrowing of the joint space consistent with moderate to severe osteoarthritis. Musculature: There is moderate atrophy of supraspinatus, with thinning of the tendon suggesting chronic high-grade partial-thickness or full-thickness tears. Infraspinatus and subscapularis do not appear atrophied. Other: There is patchy ground-glass change in the right upper lobe which is of uncertain significance. The differential diagnosis includes pneumonia. IMPRESSION: 1. 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 2. Ground-glass change in the right lung which is of uncertain significance. The differential diagnosis includes pneumonia. If clinically appropriate, a chest x-ray may provide more information. [facility]
== END 2020-03-16 10:46 | disposition home or self-care (01) ==
LOC: DI 10:45
PROVIDERS: ATTEND Family Medicine
DX: M19.011 Primary osteoarthritis, right shoulder (principal); S43.001A Unspecified subluxation of right shoulder joint, initial encounter; R91.8 Other nonspecific abnormal finding of lung field; M75.81 Other shoulder lesions, right shoulder

== ENCOUNTER 2020-05-04 13:49 | Observation (INO) | payer MEDICARE, OTHER ==
--- NOTE | 2020-05-04 14:36 | XRAY Report ---
PROCEDURE: Chest 1 View X-Ray INDICATIONS: Chest pain TECHNIQUE: One view of the chest was acquired. COMPARISON: 12/19/2016 FINDINGS: Surgical changes and devices: None. Lungs and pleura: No pleural effusions or pneumothorax. Lungs are clear. Mediastinum: Mediastinal contours appear normal. Heart size is enlarged. Bones and chest wall: No suspicious bony lesions. Overlying soft tissues appear unremarkable. IMPRESSION: No acute cardiopulmonary pathology. Reviewed by: Ike Zuluaga MD on 05/04/2020 2:35 PM PDT Approved by: Ike Zuluaga MD on 05/04/2020 2:35 PM PDT Station ID: [id number]
--- NOTE | 2020-05-04 15:38 | ED Physician Documentation ---
History of Present Illness - Stated complaint Stated Complaint: FEMALE - Chief complaint Chief Complaint: Cardiac - History obtained from History obtained from: Patient - Additonal information Additional information: Patient comes emergency department complaining of black stools for the last 5 days. She states that she had a hip surgery about 12 days ago, and has been on aspirin since. She states that she has been feeling pretty well, though she is still working on getting back to walking, but that 5 days ago, she began to notice Dark, black stools. Patient states she has been feeling somewhat lightheaded today and just tired.Been previously. She states she had a colonoscopy here 2 years ago and does not remember that it was abnormal. Patient states that she does not have any ulcer history. She has a mild pain over her left upper quadrant. No other complaints at this time. Chest pain or shortness of breath. No other easy bruising or bleeding. Review of Systems Ten Systems: 10 systems reviewed and negative Constitutional: reports: Fatigue Eyes: reports: Reviewed and negative Ears: reports: Reviewed and negative Nose: reports: Reviewed and negative Throat: reports: Reviewed and negative Cardiac: reports: Reviewed and negative Respiratory: reports: Reviewed and negative GI: reports: Abdominal Pain, Bloody / black stool : reports: Reviewed and negative Skin: reports: Reviewed and negative Musculoskeletal: reports: Reviewed and negative Neurologic: reports: Reviewed and negative Psychiatric: reports: Reviewed and negative Endocrine: reports: Reviewed and negative Immunocompromised: reports: Reviewed and negative PD PAST MEDICAL HISTORY - Past Medical History Cardiovascular: Hypertension, Angina Respiratory: None Endocrine/Autoimmune: None GI: GERD : None HEENT: None Psych: None Musculoskeletal: None Derm: None - Past Surgical History Past Surgical History: Yes General: Cholecystectomy, Colonoscopy Ortho: 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 HEENT: Cataracts - Present Medications Home Medications: Ambulatory Orders Medication Instructions Recorded Confirmed [place]-3 Fatty Acids [Fish Oil] 500 mg PO DAILY 01/22/15 12/19/16 Senna [Senokot] 17.2 mg PO Q12H PRN #14 tablet 12/10/16 12/19/16 Cholecalciferol (Vitamin D3) 1,000 unit PO DAILY 12/19/16 12/19/16 [Vitamin D3] Multivitamin [Theragran] 1 tab PO DAILYWM tablet 12/22/16 Aspirin 81 mg PO 11/28/18 Turmeric 400 mg PO 11/28/18 Ubidecarenone [Co Q-10] 75 mg PO 11/28/18 - Allergies Allergies/Adverse Reactions: Allergies Allergy/AdvReac Type Severity Reaction Status Date / Time iodine Allergy Severe Blisters/Ra Verified 05/09/16 17:51 sh/Itching Penicillins Allergy Unknown UNKNOWN Verified 05/09/16 17:51 - Social History Does the pt smoke?: No Smoking Status: Never smoker Does the pt drink ETOH?: No Does the pt have substance abuse?: No - Immunizations Immunizations are current?: Yes PD ED PE NORMAL - Vitals Vital signs reviewed: Yes - General General: Alert and oriented X 3, No acute distress, Well developed/nourished - HEENT HEENT: Atraumatic, PERRL, EOMI, Moist mucous membranes - Neck Neck: Supple, no meningeal sign - Cardiac Cardiac: RRR, No murmur, Strong equal pulses - Respiratory Respiratory: No respiratory distress, Clear bilaterally - Abdomen Abdomen: Soft, Non distended, Other (Mild left upper quadrant tenderness, no rebound or guarding.) - Rectal Rectal: Other (Good tone, maroon stool residue noted around patient's anal area. No rectal mass.) - Derm Derm: Normal color, Warm and dry, No rash - Extremities Extremities: No deformity - Neuro Neuro: Alert and oriented X 3 - Psych Psych: Normal mood, Normal affect Results - Vitals Vitals: Vital Signs - 24 hr 05/04/20 05/04/20 05/04/20 13:55 15:21 16:00 Temperature 36.1 C L Heart Rate 107 H 92 86 Respiratory 18 17 16 Rate Blood Pressure 141/91 H 152/69 H 136/90 H O2 Saturation 98 97 98 05/04/20 05/04/20 05/04/20 16:30 17:00 17:30 Temperature Heart Rate 90 73 81 Respiratory 20 18 24 Rate Blood Pressure 136/90 H 138/69 H 143/69 H O2 Saturation 96 98 98 05/04/20 05/04/20 05/04/20 18:00 18:30 19:00 Temperature Heart Rate 70 74 86 Respiratory 22 17 18 Rate Blood Pressure 140/66 H 131/61 H 150/69 H O2 Saturation 100 100 98 Oxygen O2 Source [With Activity] Room air O2 Source [Without Activity] Room air O2 Source Room air - Labs Labs: Microbiology 05/04/20 14:57 Occult Blood - Final Stool Laboratory Tests 05/04/20 05/04/20 05/04/20 15:41 15:41 15:41 WBC 14.8 H RBC 3.64 L Hgb 11.3 L Hct 34.7 L MCV 95.3 MCH 31.0 MCHC 32.6 RDW 13.7 Plt Count 361 MPV 9.2 Neut # (Auto) 11.0 H Lymph # (Auto) 1.9 [place] # (Auto) 1.1 H Eos # (Auto) 0.4 Baso # (Auto) 0.1 Absolute Nucleated RBC 0.00 Nucleated RBC % 0.0 PT INR Sodium 134 L Potassium 4.5 Chloride 101 Carbon Dioxide 26 Anion Gap 7.0 BUN 25 H Creatinine 1.0 Estimated GFR (MDRD) 53 L Glucose 105 H Calcium 9.0 Total Bilirubin 0.5 AST 20 ALT 19 Alkaline Phosphatase 59 Troponin I High Sens 5.6 Total Protein 6.3 L Albumin 3.7 Globulin 2.6 Albumin/Globulin Ratio 1.4 Lipase 51 Blood Type Antibody Screen 05/04/20 05/04/20 15:41 15:41 WBC RBC Hgb Hct MCV MCH MCHC RDW Plt Count MPV Neut # (Auto) Lymph # (Auto) [place] # (Auto) Eos # (Auto) Baso # (Auto) Absolute Nucleated RBC Nucleated RBC % PT 12.5 INR 1.1 Sodium Potassium Chloride Carbon Dioxide Anion Gap BUN Creatinine Estimated GFR (MDRD) Glucose Calcium Total Bilirubin AST ALT Alkaline Phosphatase Troponin I High Sens Total Protein Albumin Globulin Albumin/Globulin Ratio Lipase Blood Type O POSITIVE Antibody Screen NEGATIVE PD MEDICAL DECISION MAKING - ED course Complexity details: reviewed results, re-evaluated patient, considered differential, d/w patient ED course: Patient was worked up with labs and guaiac test. She was given a 1 L bolus 0.9 normal saline. Pt's hgb was found to be 11.3 on blood drawn prior to hydration. I discussed the case with Dr. Fabian, who stated that the pt should be observed, and if the hgb is trending down, she will plan to scope pt while in the hospital. Otherwise, pt can be scoped as outpt. I spoke with Dr. Bautista, and she agreed to admit the pt to her service for obs. Pt was agreeable to the plan, and remained hemodynamically stable throughout her stay in the ED. Departure - Departure Disposition: [facility] DC/Xfer Clinical Impression: Lower GI bleeding Anemia Qualifiers: Anemia type: iron deficiency Iron deficiency anemia type: chronic blood loss Qualified Code(s): D50.0 - Iron deficiency anemia secondary to blood loss (chronic) Condition: Serious Discharge Date/Time: 05/04/20 19:45
[2020-05-04 15:52] LABS: BASOPHILS # (AUTO) 0.1 10^3/uL (0.0-0.1); BASOPHILS % (AUTO) 0.6 %; EOSINOPHILS # (AUTO) 0.4 10^3/uL (0.0-0.7); HGB - HEMOGLOBIN 11.3 g/dL (12.0-16.0); LYMPHOCYTES # (AUTO) 1.9 10^3/uL (1.5-3.5); LYMPHOCYTES % (AUTO) 12.8 %; MEAN CORPUSCULAR HGB CONC 32.6 g/dL (32.0-36.0); MEAN CORPUSCULAR VOLUME 95.3 fL (81.0-99.0); MEAN PLATELET VOLUME 9.2 fL (7.9-10.8); MONOCYTES # (AUTO) 1.1 10^3/uL (0.0-1.0); MONOCYTES % (AUTO) 7.6 %; NEUTROPHILS % (AUTO) 74.2 %; PLT - PLATELET COUNT 361 10^3/uL (130-450); RED BLOOD COUNT 3.64 10^6/uL (4.20-5.40); RED CELL DISTRIBUTION WIDTH 13.7 % (12.0-15.0); WHITE BLOOD COUNT 14.8 x10^3/uL (4.8-10.8)
[2020-05-04 15:55] LABS: INR 1.1 (0.8-1.2); PT - PROTHROMBIN TIME 12.5 secs (9.9-12.6)
[2020-05-04 16:06] LABS: ALBUMIN 3.7 g/dL (3.2-5.5); ALBUMIN/GLOBULIN RATIO 1.4 (1.0-2.2); BILIRUBIN,TOTAL 0.5 mg/dL (0.2-1.0); TOTAL PROTEIN 6.3 g/dL (6.7-8.2)
[2020-05-04] MEDS ORDERED: SODIUM CHLORIDE 0.9% 1,000 ML IV STA (16:21)
[2020-05-04] MEDS ORDERED: ONDANSETRON 4 MG/2 ML VIAL IVP PRN (19:37)
[2020-05-04] MEDS ORDERED: ACETAMINOPHEN 325 MG TABLET PO PRN (19:37)
[2020-05-04] MEDS ORDERED: SODIUM CHLORIDE FLUSH 0.9% 10 ML SYRINGE IVP PRN (19:37)
--- NOTE | 2020-05-04 19:48 | HISTORY & PHYSICAL EXAMINATION ---
Chief Complaint - Chief Complaint Chief Complaint: Weakness and fatigue History of Present Illness - Admitted From Admitted From:: Home - History Obtained From Records Reviewed: Yes History obtained from: Patient, ER Physician, EMR - History of Present Illness HPI Comment/Other: This is a very pleasant 79-year-old female with a past medical history significant for hypertension but is no longer on any medications who presents today complaining of generalized weakness and fatigue. She reports that she had a left hip replacement about 12 days ago at [facility] with Dr. Diaz. She has been doing well initially but over the past 5 days she has had increasing fatigue and noticed that her stool has become quite dark. She 1 episode of nonbloody emesis 5 days ago otherwise has had no nausea, emesis, abdominal pain. She reports she is taking aspirin 81 mg twice daily which she has been taking since the surgery. She was also initially taking ibuprofen every 5 hours for the first 5 days or so but she is not sure of what dose. She has not been taking it every once in a while. She takes oxycodone every evening for pain. She states today she went to physical therapy and just felt very fatigued while there and that is why she sought medical attention. She reports having a colonoscopy a few years ago which was unremarkable from what she can recall. Reports no prior episodes of bleeding. She is not on any blood thinners except for the aspirin. She reports no chest pain, dyspnea, fever, chills. He denies any dysuria, urgency, hematuria. In the emergency department, she is found to be afebrile temperature of 36.1 C. She was tachycardic with a heart rate of 107. Blood pressure is 141/91. She was not tachypneic and saturating well on room air. Labs were significant for a white count of 14.8, hemoglobin 11.3. Her INR was 1.1 and platelets were 361. Her BUN was slightly elevated at 25. Her stool was positive for occult blood. Given these findings, medicine was consulted for admission. I did discuss goals of care with the patient and she would like to be a full code. 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 She also reports a younger brother from a myocardial infarction. Otherwise reports no significant family history. Living arrangement: At home Living Situation: With family Social History Notes: She lives at home with her brother. She is independent with her ADLs. She normally walks any assistance but has been using a walker given her recent left hip replacement. She denies any smoking or alcohol use. Meds/Allgy - Home Medications Home Medications: Ambulatory Orders Medication Instructions Recorded Confirmed [place]-3 Fatty Acids [Fish Oil] 500 mg PO DAILY 01/22/15 12/19/16 Senna [Senokot] 17.2 mg PO Q12H PRN #14 tablet 12/10/16 12/19/16 Cholecalciferol (Vitamin D3) 1,000 unit PO DAILY 12/19/16 12/19/16 [Vitamin D3] Multivitamin [Theragran] 1 tab PO DAILYWM tablet 12/22/16 Aspirin 81 mg PO 11/28/18 Turmeric 400 mg PO 11/28/18 Ubidecarenone [Co Q-10] 75 mg PO 11/28/18 - Allergies Allergies/Adverse Reactions: Allergies Allergy/AdvReac Type Severity Reaction Status Date / Time iodine Allergy Severe Blisters/Ra Verified 05/09/16 17:51 sh/Itching Penicillins Allergy Unknown UNKNOWN Verified 05/09/16 17:51 Review of Systems - Constitutional Constitutional: reports: Fatigue, Weakness. denies: Fever, Chills, Malaise, Poor appetite - Ears, Nose & Throat Ears, Nose & Throat: denies: Nasal discharge, Nasal congestion, Sore throat - Cardiovascular Cariovascular: reports: Lightheadedness. denies: Palpitations, Chest pain, Syncope, Exertional dyspnea, Decr. exercise tolerance - Respiratory Respiratory: denies: Cough, SOB at rest, SOB with exertion - Gastrointestinal Gastrointestinal: reports: Black stools. denies: Abdominal pain, Nausea, Vomiting, Andrea blood emesis, Coffee grounds emesis, Reflux/heartburn - Genitourinary Genitourinary: denies: Dysuria, Frequency, Urgency - Musculoskeletal Musculoskeletal: reports: Limited range of motion, Joint pain. denies: Muscle pain, Muscle weakness - Integumentary Integumentary: denies: Rash - Neurological Neurological: reports: General weakness, Dizziness. denies: Focal weakness, Numbness - Hematologic/Lymphatic Hematologic/Lymphatic: denies: Anemia, Bruising, Bleeding tendencies - All Other Systems All Other Systems: reports: Reviewed and negative Prior Level of Functionality: She is independent with her ADLs. She is currently ambulating with a walker given her recent left hip replacement. Exam - Vital Signs Reviewed Vital Signs: Yes Vital Signs: Vital Signs x48h Temp Pulse Resp BP Pulse Ox 05/04/20 19:00 86 18 150/69 H 98 05/04/20 18:30 74 17 131/61 H 100 05/04/20 18:00 70 22 140/66 H 100 05/04/20 17:30 81 24 143/69 H 98 05/04/20 17:00 73 18 138/69 H 98 05/04/20 16:30 90 20 136/90 H 96 05/04/20 16:00 86 16 136/90 H 98 05/04/20 15:21 92 17 152/69 H 97 05/04/20 13:55 36.1 C L 107 H 18 141/91 H 98 - Physical Exam General Appearance: positive: No acute distress, Alert Eyes Bilateral: positive: Normal inspection, Conjunctivae nml ENT: positive: ENT inspection nml Neck: positive: Nml inspection Respiratory: positive: No respiratory distress. negative: Wheezes, Rales, Rhonchi Cardiovascular: positive: Regular rate & rhythm, No murmur. negative: Tachycardia, Bradycardia, Systolic murmur Abdomen: positive: Non-tender, No distention. negative: Tenderness, Guarding, Rebound Skin: positive: Warm, Dry. negative: Pallor Extremities: positive: Full ROM, Pedal edema (Trace pitting edema in the bilateral lower extremities.), Other (Dressing in place over the lateral aspect of the left hip without any evidence of erythema. Area is nontender.) Neurologic/Psychiatric: positive: Oriented x3, Motor nml. negative: Disoriented to person, Disoriented to place, Disoriented to time Conclusion/Plan - Problem List (1) Upper GI bleed Conclusion/Plan: Concerns for upper GI bleed likely due to gastritis or an ulcer given her recent NSAID use as well as the use of aspirin. She presents with melanotic stool. Her BUN is slightly elevated compared to baseline as well. Globin is decreased 11.3 compared to baseline of approximately 14. We will start her empirically on Protonix 40 mg IV twice daily. Recheck hemoglobin this evening and tomorrow morning. Continue with IV fluids. Zofran as needed. Consult general surgery for possible endoscopy. (2) Anemia due to GI blood loss Conclusion/Plan: The anemia is likely due to the GI bleed. She presents with hemoglobin 11.3 compared to baseline of 14. Her stool is occult positive. We will recheck her hemoglobin this evening and tomorrow morning. Will transfuse for goal hemoglobin greater than 7 unless there is evidence of significant bleeding and hemodynamic instability. SCDs for DVT prophylaxis. (3) Status post left hip replacement Conclusion/Plan: She is status post left hip replacement at [facility] approximately 12 days ago. We will treat her pain with Tylenol and oxycodone as needed. She has outpatient follow-up scheduled for this Monday with orthopedics - Lab Results Lab results reviewed: Yes Fish Bones: 05/04/20 15:41 05/04/20 15:41 - Diagnostic Imaging Results Diagnostic Imaging Results: positive: Final report reviewed - EKG Results EKG Interpreted Independently: Yes EKG Findings: EKG shows sinus tachycardia without any evidence of ischemia. Core Measures - Anticipated LOS I expect patient to be DC'd or transferred within 96 hours.: Yes - Issues Hospital Issues and Management Plan: 79-year-old female with recent left hip replacement presents with melena. She has been taking NSAIDs recently as well as aspirin twice daily. We will observe her overnight and trend her hemoglobin. Will consult general surgery for possible endoscopy. - DVT/VTE - Prophylaxis VTE/DVT Device ordered at admit?: Yes VTE/DVT Prophylaxis med ordered at admit?: No Not Ordered - Medical Reason: Contraindicated
[2020-05-04] MEDS ORDERED: oxyCODONE 5 MG TABLET PO PRN (21:17)
[2020-05-04] MEDS: PANTOPRAZOLE 40 MG VIAL IVP SCH (21:17)
[2020-05-04] MEDS: LACTATED RINGERS 1,000 ML IV SCH (21:17)
[2020-05-04 22:27] LABS: HGB - HEMOGLOBIN 10.8 g/dL (12.0-16.0)
[2020-05-05] MEDS: SODIUM CHLORIDE FLUSH 0.9% 10 ML SYRINGE IVP SCH ×2 (02:59→08:11)
[2020-05-05 05:57] LABS: BASOPHILS # (AUTO) 0.1 10^3/uL (0.0-0.1); BASOPHILS % (AUTO) 0.7 %; EOSINOPHILS # (AUTO) 0.6 10^3/uL (0.0-0.7); EOSINOPHILS % (AUTO) 4.9 %; HGB - HEMOGLOBIN 9.8 g/dL (12.0-16.0); LYMPHOCYTES # (AUTO) 2.4 10^3/uL (1.5-3.5); LYMPHOCYTES % (AUTO) 19.8 %; MEAN CORPUSCULAR HGB CONC 32.2 g/dL (32.0-36.0); MEAN CORPUSCULAR VOLUME 96.2 fL (81.0-99.0); MEAN PLATELET VOLUME 9.2 fL (7.9-10.8); MONOCYTES # (AUTO) 0.9 10^3/uL (0.0-1.0); MONOCYTES % (AUTO) 7.1 %; NEUTROPHILS % (AUTO) 65.9 %; PLT - PLATELET COUNT 304 10^3/uL (130-450); RED BLOOD COUNT 3.16 10^6/uL (4.20-5.40); RED CELL DISTRIBUTION WIDTH 13.6 % (12.0-15.0); WHITE BLOOD COUNT 12.1 x10^3/uL (4.8-10.8)
[2020-05-05 06:13] LABS: CALCIUM 8.7 mg/dL (8.5-10.3); CREATININE 0.8 mg/dL (0.4-1.0)
[2020-05-05] MEDS: LACTATED RINGERS 1,000 ML IV SCH (07:11)
[2020-05-05] MEDS: PANTOPRAZOLE 40 MG VIAL IVP SCH (08:11)
--- NOTE | 2020-05-05 10:49 | PHARMACY PROGRESS NOTE ---
- Best Possible Medication History Admit Date and Time: 05/04/201936 Processed by: Pharmacy Medication History completed: Yes Patient Interview: Completed Secondary Source(s): Pharmacy records, Insurance records As the person ultimately responsible for medication therapy, providers are able to order a medication from an existing home medication list in [facility] via the "Reconcile Routine" prior to Confirmation of that medication by support clerk. Such practice is discouraged except when the physician, in their clinical judgment, deems that a medical need exists for a medication without regard to previous use.
--- NOTE | 2020-05-05 13:58 | ANESTHESIA ---
Pre-Anesthesia VS, & Labs - Diagnosis GI bleed - Procedure EGD Vital Signs: Temp Pulse Resp BP Pulse Ox 36.3 C L 68 18 146/58 H 99 05/05/20 13:00 05/05/20 13:00 05/05/20 13:00 05/05/20 13:00 05/05/20 13:00 Height 5 ft 7 in Weight (kg) 112 kg Body Mass Index 38.7 - NPO >8 hours - Is Patient ?: No - Lab Results Current Lab Results: Laboratory Tests 05/05/20 05:36: Sodium 140, Potassium 3.7, Chloride 105, Carbon Dioxide 26, Anion Gap 9.0, BUN 19, Creatinine 0.8, Estimated GFR (MDRD) 69 L, Glucose 95, Calcium 8.7, Phosphorus 4.0, Magnesium 2.0 05/05/20 05:36: WBC 12.1 H, RBC 3.16 L, Hgb 9.8 L, Hct 30.4 L, MCV 96.2, MCH 31.0, MCHC 32.2, RDW 13.6, Plt Count 304, MPV 9.2, Neut # (Auto) 8.0 H, Lymph # (Auto) 2.4, [place] # (Auto) 0.9, Eos # (Auto) 0.6, Baso # (Auto) 0.1, Absolute Nucleated RBC 0.00, Nucleated RBC % 0.0 05/04/20 22:11: Hgb 10.8 L, Hct 32.2 L 05/04/20 15:41: PT 12.5, INR 1.1 05/04/20 15:41: Blood Type O POSITIVE, Antibody Screen NEGATIVE 05/04/20 15:41: Troponin I High Sens 5.6 05/04/20 15:41: Sodium 134 L, Potassium 4.5, Chloride 101, Carbon Dioxide 26, Anion Gap 7.0, BUN 25 H, Creatinine 1.0, Estimated GFR (MDRD) 53 L, Glucose 105 H, Calcium 9.0, Total Bilirubin 0.5, AST 20, ALT 19, Alkaline Phosphatase 59, Total Protein 6.3 L, Albumin 3.7, Globulin 2.6, Albumin/Globulin Ratio 1.4, Lipase 51 05/04/20 15:41: WBC 14.8 H, RBC 3.64 L, Hgb 11.3 L, Hct 34.7 L, MCV 95.3, MCH 31.0, MCHC 32.6, RDW 13.7, Plt Count 361, MPV 9.2, Neut # (Auto) 11.0 H, Lymph # (Auto) 1.9, [place] # (Auto) 1.1 H, Eos # (Auto) 0.4, Baso # (Auto) 0.1, Absolute Nucleated RBC 0.00, Nucleated RBC % 0.0 Lab results reviewed: Yes Fish Bones: 05/05/20 05:36 05/05/20 05:36 Home Medications and Allergies Home Medications: Ambulatory Orders Aspirin [Aspirin EC] 162 mg PO DAILY 05/05/20 Active Medications Acetaminophen (Tylenol) 650 mg PO Q4HR PRN PRN Reason: Pain 1 to 4 Lactated Ringer's (Lr) 1,000 mls @ 100 mls/hr IV .Q10H [facility] Last Admin: 05/05/20 07:11 Dose: 100 mls/hr Documented by: Ondansetron HCl (Zofran Inj) 4 mg IVP Q6HR PRN PRN Reason: Nausea / Vomiting Oxycodone HCl (Roxicodone) 5 mg PO Q4HR PRN PRN Reason: PAIN Last Admin: 05/05/20 01:18 Dose: 5 mg Documented by: Pantoprazole Sodium (Protonix) 40 mg IVP BID [facility] Last Admin: 05/05/20 08:11 Dose: 40 mg Documented by: Sodium Chloride (Normal Saline Flush 0.9%) 10 ml IVP PRN PRN PRN Reason: NEEDED PER PROVIDER ORDERS Sodium Chloride (Normal Saline Flush 0.9%) 10 ml IVP 0100,0900,1700 [facility] Last Admin: 05/05/20 08:11 Dose: 10 ml Documented by: Aspirin [Aspirin EC] 162 mg PO DAILY 05/05/20 Allergies/Adverse Reactions: Allergies Allergy/AdvReac Type Severity Reaction Status Date / Time iodine Allergy Severe Blisters/Ra Verified 05/09/16 17:51 sh/Itching Penicillins Allergy Unknown UNKNOWN Verified 05/09/16 17:51 Anes History & Medical History - Anesthetic History Anesthesia Complications: reports: No previous complications Family history of Anesthesia Complications: Denies Family history of Malignant Hyperthermia: Denies - Medical History Cardiovascular: reports: Hypertension, Angina Pulmonary: reports: None Gastrointestinal: reports: GERD Urinary: reports: None Musculoskeletal: reports: None Endocrine/Autoimmune: reports: None Blood Disorders: reports: None Skin: reports: None Smoking Status: Never smoker Other Past Medical History: obesity - Surgical History General: Cholecystectomy, Colonoscopy Eyes Ears Nose Throat (EENT): Cataracts Gynecologic: Hysterectomy Orthopedic: Knee replacement Exam General: Alert, Oriented x3, Cooperative Dental: WNL Mouth Openin Fingerbreadth Mallampati classification: IV Thyromental Distance: 4-6 cm Respiratory: Lungs clear Cardiovascular: Regular rate Plan Anesthesia Type: MAC Consent for Procedure(s) Verified and Reviewed: Yes Code Status: Attempt Resuscitation ASA classification: 3-Severe systemic disease Is this case an emergency?: No
--- NOTE | 2020-05-05 16:41 | CONSULTATION NOTE ---
Referring Provider Name of Referring Provider:: Dr. Huynh Consult Date: 05/05/20 Chief Complaint - Chief Complaint Chief Complaint: Weakness and fatigue History of Present Illness - Admitted From Admitted From:: ED - History Obtained From Records Reviewed: Providers notes History obtained from: Patient and providers Exam Limitations: None - History of Present Illness HPI Comment/Other: Very pleasant 79 year old lady who recently had a hip replacement at [facility]. She has been taking ibuprofen at home until recently and is still on asa. She noted weakness during physical therapy and presented to the ED. She was noted to have melanotic stool and admitted to the medicine service for treatment and observation. She has improved overnight and Hgb has stabilized at 9.8. I have been consulted regarding EGD prior to discharge. History - Past Medical History Cardiovascular: reports: Hypertension, Angina Respiratory: reports: None Endocrine/Autoimmune: reports: None GI: reports: GERD : reports: None HEENT: reports: None Psych: reports: None Musculoskeletal: reports: None Derm: reports: None MRSA Hx?: No Other Past Medical History: obesity - Past Surgical History General: reports: Cholecystectomy, Colonoscopy Ortho: reports: Knee replacement /DIVERSITY INTERN: reports: Hysterectomy HEENT: reports: Cataracts - Family & Social History Family History Comment/Other: She reports a strong family history of gallbladder disease requiring cholecystectomy except in one of her brothers. She also reports a younger brother from a myocardial infarction. Otherwise reports no significant family history. Living arrangement: At home Living Situation: With family Social History Notes: She lives at home with her brother. She is independent with her ADLs. She normally walks any assistance but has been using a walker given her recent left hip replacement. She denies any smoking or alcohol use. Meds/Allgy - Home Medications Home Medications: Ambulatory Orders Medication Instructions Recorded Confirmed Aspirin [Aspirin EC] 162 mg PO DAILY 05/05/20 05/05/20 - Allergies Allergies/Adverse Reactions: Allergies Allergy/AdvReac Type Severity Reaction Status Date / Time iodine Allergy Severe Blisters/Ra Verified 05/09/16 17:51 sh/Itching Penicillins Allergy Unknown UNKNOWN Verified 05/09/16 17:51 Review of Systems - Constitutional Constitutional: reports: Fatigue - Ears, Nose & Throat Ears, Nose & Throat: denies: Tinnitus, Vertigo - Cardiovascular Cariovascular: denies: Irregular heart rate, Palpitations - Respiratory Respiratory: denies: Cough - Gastrointestinal Gastrointestinal: reports: Black stools, Bloody stools. denies: Diarrhea - Genitourinary Genitourinary: denies: Dysuria, Frequency - Neurological Neurological: reports: General weakness. denies: Focal weakness - All Other Systems All Other Systems: reports: Reviewed and negative Exam - Vital Signs Reviewed Vital Signs: Yes Vital Signs: Vital Signs x48h Temp Pulse Resp BP Pulse Ox 05/05/20 13:00 36.3 C L 68 18 146/58 H 99 - Physical Exam General Appearance: positive: No acute distress, Alert Eyes Bilateral: positive: Normal inspection, PERRL ENT: positive: Pharynx nml Neck: positive: Nml inspection Respiratory: positive: Chest non-tender, No respiratory distress Cardiovascular: positive: Regular rate & rhythm, No murmur Abdomen: positive: No distention. negative: Guarding, Rebound Neurologic/Psychiatric: positive: Oriented x3 Conclusion and Plan - Lab Results Microbiology Results 05/04/20 14:57 Stool Occult Blood - Final Laboratory Results 05/05/20 05:36: Sodium 140, Potassium 3.7, Chloride 105, Carbon Dioxide 26, Anion Gap 9.0, BUN 19, Creatinine 0.8, Estimated GFR (MDRD) 69 L, Glucose 95, Calcium 8.7, Phosphorus 4.0, Magnesium 2.0 05/05/20 05:36: WBC 12.1 H, RBC 3.16 L, Hgb 9.8 L, Hct 30.4 L, MCV 96.2, MCH 31.0, MCHC 32.2, RDW 13.6, Plt Count 304, MPV 9.2, Neut # (Auto) 8.0 H, Lymph # (Auto) 2.4, [place] # (Auto) 0.9, Eos # (Auto) 0.6, Baso # (Auto) 0.1, Absolute Nucleated RBC 0.00, Nucleated RBC % 0.0 05/04/20 22:11: Hgb 10.8 L, Hct 32.2 L 05/04/20 15:41: PT 12.5, INR 1.1 05/04/20 15:41: Blood Type O POSITIVE, Antibody Screen NEGATIVE 05/04/20 15:41: Troponin I High Sens 5.6 05/04/20 15:41: Sodium 134 L, Potassium 4.5, Chloride 101, Carbon Dioxide 26, Anion Gap 7.0, BUN 25 H, Creatinine 1.0, Estimated GFR (MDRD) 53 L, Glucose 105 H, Calcium 9.0, Total Bilirubin 0.5, AST 20, ALT 19, Alkaline Phosphatase 59, To alice Protein 6.3 L, Albumin 3.7, Globulin 2.6, Albumin/Globulin Ratio 1.4, Lipase 51 05/04/20 15:41: WBC 14.8 H, RBC 3.64 L, Hgb 11.3 L, Hct 34.7 L, MCV 95.3, MCH 31.0, MCHC 32.6, RDW 13.7, Plt Count 361, MPV 9.2, Neut # (Auto) 11.0 H, Lymph # (Auto) 1.9, [place] # (Auto) 1.1 H, Eos # (Auto) 0.4, Baso # (Auto) 0.1, Absolute Nucleated RBC 0.00, Nucleated RBC % 0.0 - Diagnosis Diagnosis: Likely upper GI hemorrhage due to NSAID use. - Plan Plan: We have discussed the risks and benefits of colonoscopy and the patient has expressed a desire to complete the procedure.
[2020-05-05] MEDS ORDERED: LACTATED RINGERS 1,000 ML IV ONE (17:42)
--- NOTE | 2020-05-05 17:58 | Discharge Plan ---
Discharge Plan Problem Reviewed?: Yes Disposition: Home, Self Care Condition: Stable Prescriptions: Pantoprazole [Protonix] 40 mg PO DAILY #30 tablet Diet: Regular Activity Restrictions: Activity as Tolerated Shower Restrictions: No Driving Restrictions: No Assistance Devices: Walker Instruction Topics: Gastric Ulcer Health Concerns: You were placed in observation in the hospital because you had black stools. When we tested the stools they were positive for old blood. You have had a r ecent hip replacement and we are using ibuprofen and aspirin for pain relief. After being placed in observation overnight, you remained stable with your blood work. A normal amount of blood in a woman is 12 to 16 g of hemoglobin. You were admitted at 11.3 so we suspected you may be having an upper GI bleed from your nonsteroidal therapy. You drifted down to 9.8 g of hemoglobin and we thought it would be better if you had an endoscopy to make sure you are not actively bleeding. Plan of Treatment: 1. We checked your hemoglobin every 6 hours. You drifted no lower than the 9.8 g. 2. You underwent an endoscopy with Dr. Vickie Doshi and were found to have a prepyloric ulcer that was 3 to 7 mm in size. The prepylorus is a specific anatomical region of the stomach. You were not actively bleeding. Dr. Doshi did do a biopsy result that is pending. 3. You were placed on Protonix, which is an ulcer drug that heals ulcers. You initially received it intravenously. You will now go home on it. 4. You did not need a blood transfusion. Care Goals: 1. Dr. Doshi's office will call you with the biopsy results. If they have not called you in a week, please call her office at [phone]. Please leave your name and number with them and asked them to call you back with the biopsy results. Dr. Doshi may want to see you in 6 weeks. Please asked the office at that time if they want to give you an appointment. 2. Please see your primary care provider, Dr. Trisha Tanner, in the next 1 to 2 weeks says that she can check her hemoglobin. 3. Start an iron tablet prescription. Take 1 tablet a day with 1 tablet of vitamin C 500 mg. Do this for a month. 4. You will also be asked to take Protonix, 1 pill a day, to completely heal the ulcer that was seen in your stomach. 5. You must not have any nonsteroidal medication. That would mean no Naprosyn, Aleve, Advil, ibuprofen, aspirin, etc. You can take [id number] Tylenol. If you need anything stronger for pain please asked Dr. Prince for a prescription and let her know that you have an ulcer. 6. You may eat a regular diet. Assessment: Patient is still under the effects of some of her sedatives from the EGD. Her was at the bedside in her these instructions. He promises to have her follow through. No Smoking: If you smoke, Please STOP! Call for help. Follow-up with: Trisha Tanner DO [Primary Care Provider] -
--- NOTE | 2020-05-05 18:06 | DISCHARGE SUMMARY ---
"Discharge Summary Admit Date: 05/04/20 Discharge Date: 05/05/20 Discharging Provider: Estrella Huynh MD Primary Care Provider: Trisha Tanner MD Code Status: Attempt Resuscitation Condition at Discharge: Stable Discharge Disposition: 01 Home, Self Care - DIAGNOSES Discharge Diagnoses with Status of Each Condition: 1. Acute blood loss anemia 2. Upper GI bleed 3. Prepyloric gastric ulcer 4. Nonsteroidal medication side effect 5. Status post total hip replacement - HPI History of Present Illness: This is a very pleasant 79-year-old female with a past medical history significant for hypertension but is no longer on any medications who presents today complaining of generalized weakness and fatigue. She reports that she had a left hip replacement about 12 days ago at [facility] with Dr. Diaz. She has been doing well initially but over the past 5 days she has had increasing fatigue and noticed that her stool has become quite dark. She 1 episode of nonbloody emesis 5 days ago otherwise has had no nausea, emesis, abdominal pain. She reports she is taking aspirin 81 mg twice daily which she has been taking since the surgery. She was also initially taking ibuprofen every 5 hours for the first 5 days or so but she is not sure of what dose. She has not been taking it every once in a while. She takes oxycodone every evening for pain. She states today she went to physical therapy and just felt very fatigued while there and that is why she sought medical attention. She reports having a c olonoscopy a few years ago which was unremarkable from what she can recall. Reports no prior episodes of bleeding. She is not on any blood thinners except for the aspirin. She reports no chest pain, dyspnea, fever, chills. He denies any dysuria, urgency, hematuria. In the emergency department, she is found to be afebrile temperature of 36.1 C. She was tachycardic with a heart rate of 107. Blood pressure is 141/91. She was not tachypneic and saturating well on room air. Labs were significant for a white count of 14.8, hemoglobin 11.3. Her INR was 1.1 and platelets were 361. Her BUN was slightly elevated at 25. Her stool was positive for occult blood. Given these findings, medicine was consulted for admission. I did discuss goals of care with the patient and she would like to be a full code. - Past Medical History Cardiovascular: reports: Hypertension Respiratory: reports: None Endocrine/Autoimmune: reports: None GI: reports: GERD : reports: None HEENT: reports: None Psych: reports: None Musculoskeletal: reports: None Derm: reports: None - CONSULTS | PROCEDURES Procedures: 1. EGD with biopsy 2. Serial hemoglobin with crista 9.8 g 3. Chest x-ray with no acute cardiopulmonary pathology - HOSPITAL COURSE Hospital Course: Hemoglobin on admission was 11.3. She nadired at 9.8. Blood pressure stayed stable, pulse stayed stable. She did not need transfusion. She was seen by Dr. Doshi who did an endoscopy. She was found to have 2 small prepyloric ulcers. Her gastric antral type mucosa was negative for any alterations in pathology. She did not have chronic gastritis or Helicobacter pylori. 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 She has been advised never to take nonsteroidals again. We would like her to take a proton pump inhibitor for the next month. She can see Dr. Doshi in the next 4 to 6 weeks. We would also like her to take ferrous gluconate with vitamin C once a day for the next month. She is discharged in stable condition. Exam was 36.7 temperature, pulse 81 and regular, blood pressure 147/66. Respirations 20 and 98% on room air. She is a 5 foot 7 inch white female who weighs 112 kg. A very, very pleasant lady. Neck is supple. Lungs are clear to auscultation and percussion. PMI normally placed and she has a regular rate and rhythm. She is able to get up to go to the bathroom and uses a walker. Abdomen has a large pannus, nontender. Normal bowel sounds. The left hip wound is slightly tender but there is no redness or heat. No drainage. She is very anxious to get these renetta taken out tomorrow by Dr. Diaz. I have asked her to follow-up with Dr. Doshi, her primary care provider Meghana Patino, and Dr. Diaz. - ALLERGIES Allergies/Adverse Reactions: Allergies Allergy/AdvReac Type Severity Reaction Status Date / Time iodine Allergy Severe Blisters/Ra Verified 05/09/16 17:51 sh/Itching Penicillins Allergy Unknown UNKNOWN Verified 05/09/16 17:51 - MEDICATIONS Home Medications: Ambulatory Orders Medication Instructions Recorded Confirmed Ferrous Gluconate 240 mg PO DAILY #30 tablet 05/05/20 Pantoprazole [Protonix] 40 mg PO DAILY #30 tablet 05/05/20 - LABS Result Diagrams: 05/05/20 05:36 05/05/20 05:36"
[2020-05-05 18:55] VITALS: BP 147/66
[2020-05-05] MEDS ORDERED: PROPOFOL 200 MG/20 ML VIAL IVP ONE (19:07)
[2020-05-05] MEDS ORDERED: fentaNYL 100 MCG/2 ML VIAL IVP ONE (19:07)
== END 2020-05-05 19:08 | disposition home or self-care (01) ==
LOC: ED 13:49 → MS2 19:37
PROVIDERS: ADMIT Internal Medicine; ATTEND Specialist
PROC: 0DB68ZX Excision of Stomach, Via Natural or Artificial Opening Endoscopic, Diagnostic (ICD-10-PCS; principal; 2020-05-05 15:00)
DX: K25.4 Chronic or unspecified gastric ulcer with hemorrhage (principal); D62 Acute posthemorrhagic anemia; K44.9 Diaphragmatic hernia without obstruction or gangrene; T39.315A Adverse effect of propionic acid derivatives, initial encounter; Z96.642 Presence of left artificial hip joint; Z79.82 Long term (current) use of aspirin
CPT/HCPCS: 36415; 43239; 71045; 80048; 80053; 82272; 83690; 83735; 84100; 84484; 85014; 85018; 85025; 85610; 86850; 86900; 86901; 93005; 96361; 96374; 99285; A9270; G0378; J7120; 82274

== ENCOUNTER 2020-05-13 07:00 | Outpatient (CLI) | payer MEDICARE, OTHER ==
[2020-05-13 18:42] LABS: BASOPHILS # (AUTO) 0.1 10^3/uL (0.0-0.1); BASOPHILS % (AUTO) 0.8 %; EOSINOPHILS # (AUTO) 0.6 10^3/uL (0.0-0.7); EOSINOPHILS % (AUTO) 6.9 %; HGB - HEMOGLOBIN 11.5 g/dL (12.0-16.0); LYMPHOCYTES % (AUTO) 22.6 %; MEAN CORPUSCULAR HEMOGLOBIN 30.8 pg (27.0-31.0); MEAN CORPUSCULAR HGB CONC 31.4 g/dL (32.0-36.0); MEAN CORPUSCULAR VOLUME 98.1 fL (81.0-99.0); MONOCYTES # (AUTO) 0.7 10^3/uL (0.0-1.0); MONOCYTES % (AUTO) 8.4 %; NEUTROPHILS # (AUTO) 5.4 10^3/uL (1.5-6.6); NEUTROPHILS % (AUTO) 60.8 %; PLT - PLATELET COUNT 425 10^3/uL (130-450); RED BLOOD COUNT 3.73 10^6/uL (4.20-5.40); RED CELL DISTRIBUTION WIDTH 14.4 % (12.0-15.0); WHITE BLOOD COUNT 8.9 x10^3/uL (4.8-10.8)
[2020-05-13 19:15] LABS: ALBUMIN 4.1 g/dL (3.2-5.5); ALBUMIN/GLOBULIN RATIO 1.3 (1.0-2.2); BILIRUBIN,TOTAL 0.3 mg/dL (0.2-1.0); CALCIUM 9.2 mg/dL (8.5-10.3); TOTAL PROTEIN 7.2 g/dL (6.7-8.2)
== END 2020-05-13 23:59 | disposition home or self-care (01) ==
LOC: LAB.WCP 07:00
PROVIDERS: ATTEND Family Medicine
DX: K25.9 Gastric ulcer, unspecified as acute or chronic, without hemorrhage or perforation (principal)
CPT/HCPCS: 36415; 80053; 85025

== ENCOUNTER 2020-08-06 09:40 | Outpatient (CLI) | payer MEDICARE, OTHER ==
[2020-08-06 11:57] LABS: BASOPHILS # (AUTO) 0.1 10^3/uL (0.0-0.1); EOSINOPHILS # (AUTO) 0.3 10^3/uL (0.0-0.7); EOSINOPHILS % (AUTO) 3.7 %; LYMPHOCYTES # (AUTO) 1.5 10^3/uL (1.5-3.5); LYMPHOCYTES % (AUTO) 19.5 %; MEAN CORPUSCULAR HGB CONC 30.7 g/dL (32.0-36.0); MEAN CORPUSCULAR VOLUME 97.6 fL (81.0-99.0); MEAN PLATELET VOLUME 10.5 fL (7.9-10.8); MONOCYTES # (AUTO) 0.6 10^3/uL (0.0-1.0); MONOCYTES % (AUTO) 7.8 %; NEUTROPHILS # (AUTO) 5.2 10^3/uL (1.5-6.6); NEUTROPHILS % (AUTO) 67.4 %; PLT - PLATELET COUNT 266 10^3/uL (130-450); RED CELL DISTRIBUTION WIDTH 14.7 % (12.0-15.0); WHITE BLOOD COUNT 7.8 x10^3/uL (4.8-10.8)
[2020-08-06 12:07] LABS: % IRON SATURATION 14 % (20-50); ALBUMIN 3.9 g/dL (3.2-5.5); ALBUMIN/GLOBULIN RATIO 1.1 (1.0-2.2); ALKALINE PHOSPHATASE 71 IU/L (42-121); ALT ALANINE AMINOTRANSFERASE 21 IU/L (10-60); AST ASPARTATE AMINOTRANSFERASE 25 IU/L (10-42); BILIRUBIN,TOTAL 0.6 mg/dL (0.2-1.0); BUN - BLOOD UREA NITROGEN 11 mg/dL (6-20); CALCIUM 9.6 mg/dL (8.5-10.3); CARBON DIOXIDE - CO2 23 mmol/L (21-32); CHLORIDE 105 mmol/L (101-111); CHOL/HDL RATIO 3.4 (<4.4); CHOLESTEROL 193 mg/dL; GLUCOSE 97 mg/dL (70-100); HDL CHOLESTEROL 56 mg/dL; IRON 55 ug/dL (28-170); LDL CHOLESTEROL,CALCULATED 117 mg/dL; LDL/HDL RATIO 2.1 (<4.4); SODIUM 140 mmol/L (135-145); TOTAL IRON BINDING CAPACITY 389 ug/dL (250-450); TOTAL PROTEIN 7.4 g/dL (6.7-8.2); TRANSFERRIN 278 mg/dL (192-382); VLDL CHOLESTEROL 20 mg/dL
[2020-08-06 13:09] LABS: FERRITIN 35.4 ng/mL (11.0-306.8)
== END 2020-08-06 23:59 | disposition home or self-care (01) ==
LOC: LAB.WCP 09:40
PROVIDERS: ATTEND Family Medicine
DX: I10 Essential (primary) hypertension (principal); E78.5 Hyperlipidemia, unspecified; D50.9 Iron deficiency anemia, unspecified
CPT/HCPCS: 36415; 80053; 80061; 82607; 82728; 83540; 83721; 84443; 84466; 85025

== ENCOUNTER 2020-09-24 12:42 | Observation (INO) | payer MEDICARE, OTHER ==
[~2020-09-24 12:42] MED LIST: SODIUM CHLORIDE 0.9% 1,000 ML IV SCH
[2020-09-24] MEDS ORDERED: ASPIRIN CHEW 81 MG TABLET PO STA (13:11)
--- NOTE | 2020-09-24 13:12 | ED Physician Documentation ---
PD HPI CHEST PAIN - Stated complaint Stated Complaint: CHEST PX - Chief complaint Chief Complaint: Cardiac - History obtained from History obtained from: Patient - Additional information Additional information: This is a nicky 80-year-old woman with no history of coronary disease who has had on and off chest pressure, generally substernal and radiating towards the neck for the last 2 weeks. It did seem exertional. Today it has been going on all day. It is not worse today though. She does have some shortness of breath and dizziness with it. No sweats or nausea. Review of Systems Ten Systems: 10 systems reviewed and negative Constitutional: denies: Fever, Chills Cardiac: reports: Palpitations (at night). 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: No - Immunizations Immunizations are current?: Yes PD ED PE NORMAL - Vitals Vital signs reviewed: Yes - General General: Alert and oriented X 3, No acute distress - HEENT HEENT: PERRL, EOMI - Neck Neck: Supple, no meningeal sign, No bony TTP - Cardiac Cardiac: RRR, No murmur - Respiratory Respiratory: No respiratory distress, Clear bilaterally - Abdomen Abdomen: Non tender - Back Back: No CVA TTP, No spinal TTP - Derm Derm: Normal color, Warm and dry - Extremities Extremities: No edema, No calf tenderness / cord - Neuro Neuro: Alert and oriented X 3, Normal speech Results - Vitals Vitals: Vital Signs - 24 hr 09/24/20 09/24/20 12:47 13:43 Temperature 36.8 C Heart Rate 93 64 Respiratory 20 16 Rate Blood Pressure 140/97 H 157/79 H O2 Saturation 96 96 Oxygen O2 Source [] Room air O2 Source [] Room air O2 Source Room air - EKG (time done) 1250 Rate: Rate (enter#) (93) Rhythm: NSR Intervals: Normal [place] QRS: LVH Ischemia: Non specific changes (Flat anterior T waves which seem flatter than the last EKG on the chart dated May 04 of this year.). No: ST elevation c/w ischemia, ST depression Computer interpretation: Agree with computer - Labs Labs: Laboratory Tests 09/24/20 09/24/20 09/24/20 13:05 13:05 13:05 WBC 8.9 RBC 5.00 Hgb 14.9 Hct 44.5 MCV 89.0 MCH 29.8 MCHC 33.5 RDW 15.7 H Plt Count 288 MPV 9.8 Neut # (Auto) 5.7 Lymph # (Auto) 2.0 [place] # (Auto) 0.8 Eos # (Auto) 0.3 Baso # (Auto) 0.1 Absolute Nucleated RBC 0.00 Nucleated RBC % 0.0 Sodium 135 Potassium 3.5 Chloride 99 L Carbon Dioxide 24 Anion Gap 12.0 BUN 15 Creatinine 1.1 H Estimated GFR (MDRD) 48 L Glucose 96 Calcium 9.5 Total Bilirubin 1.0 AST 34 ALT 34 Alkaline Phosphatase 85 Troponin I High Sens 5.5 Total Protein 7.7 Albumin 4.3 Globulin 3.4 Albumin/Globulin Ratio 1.3 Lipase 38 PD MEDICAL DECISION MAKING - ED course ED course: 80-year-old woman with on and off chest pain for 2 weeks now generally worse, but minimal on evaluation with potentially some very very subtle EKG changes from April. Heart score is 5. Will observe with the hospitalist team. Departure - Departure Disposition: ED Place in Observation Clinical Impression: Chest pain Qualifiers: Chest pain type: unspecified Qualified Code(s): R07.9 - Chest pain, unspecified
[2020-09-24 13:22] LABS: BASOPHILS # (AUTO) 0.1 10^3/uL (0.0-0.1); BASOPHILS % (AUTO) 0.6 %; EOSINOPHILS # (AUTO) 0.3 10^3/uL (0.0-0.7); EOSINOPHILS % (AUTO) 2.8 %; HGB - HEMOGLOBIN 14.9 g/dL (12.0-16.0); LYMPHOCYTES % (AUTO) 22.6 %; MEAN CORPUSCULAR HEMOGLOBIN 29.8 pg (27.0-31.0); MEAN CORPUSCULAR HGB CONC 33.5 g/dL (32.0-36.0); MEAN PLATELET VOLUME 9.8 fL (7.9-10.8); MONOCYTES # (AUTO) 0.8 10^3/uL (0.0-1.0); MONOCYTES % (AUTO) 9.3 %; NEUTROPHILS # (AUTO) 5.7 10^3/uL (1.5-6.6); NEUTROPHILS % (AUTO) 63.8 %; PLT - PLATELET COUNT 288 10^3/uL (130-450); RED CELL DISTRIBUTION WIDTH 15.7 % (12.0-15.0); WHITE BLOOD COUNT 8.9 x10^3/uL (4.8-10.8)
[2020-09-24 13:38] LABS: ALBUMIN 4.3 g/dL (3.2-5.5); ALBUMIN/GLOBULIN RATIO 1.3 (1.0-2.2); CALCIUM 9.5 mg/dL (8.5-10.3); CREATININE 1.1 mg/dL (0.4-1.0); TOTAL PROTEIN 7.7 g/dL (6.7-8.2)
[2020-09-24] MEDS ORDERED: ONDANSETRON 4 MG/2 ML VIAL IVP PRN (14:03)
[2020-09-24] MEDS ORDERED: SODIUM CHLORIDE FLUSH 0.9% 10 ML SYRINGE IVP PRN (14:03)
[2020-09-24] MEDS ORDERED: MORPHINE 2 MG/ML CARPUJECT IVP PRN (14:03)
--- NOTE | 2020-09-24 14:09 | XRAY Report ---
PROCEDURE: Chest 1 View X-Ray INDICATIONS: Chest pain TECHNIQUE: One view of the chest was acquired. COMPARISON: 05/04/2020 FINDINGS: Surgical changes and devices: None. Lungs and pleura: No pleural effusions or pneumothorax. Lungs are clear. Mediastinum: Mediastinal contours appear normal. Heart size is normal. Bones and chest wall: No suspicious bony lesions. Overlying soft tissues appear unremarkable. IMPRESSION: Stable examination of the chest without acute cardiopulmonary abnormalities. Reviewed by: Geraldo Willett MD on 09/24/2020 2:07 PM PST Approved by: Geraldo Willett MD on 09/24/2020 2:07 PM PST Station ID: [id number]
[2020-09-24] MEDS ORDERED: NITROGLYCERIN SL 0.4 MG TABLET SL PRN (14:14)
--- NOTE | 2020-09-24 14:32 | HISTORY & PHYSICAL EXAMINATION ---
Chief Complaint - Chief Complaint Chief Complaint: chest pain History of Present Illness - Admitted From Admitted From:: ER - History Obtained From Records Reviewed: [facility] History obtained from: pt Exam Limitations: no - History of Present Illness HPI Comment/Other: This is a 80-year-old woman with a past medical history of hypertension, angina, gastro ulcer who present ER complain of chest pain. Pt reportshe has had on and off chest pressure for couple of weeks. she feels her chest pressure like someone siting at her chest. she report her chest pain usually start on upper gastric then gradually along with substernal to middle sternal and move to her neck area. It worsen at the night, better at the daytime. Today it has been going on all day. She does report sometime she feels some shortness of breath and palpitation. Patient denies fever, chill, Cough, wheezing, Nausea, vomiting,Abdominal pain. Initial troponin test is negative, EKG present very minimal subtle EKG changes from the previous. CXR is unremarkable. 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 She also reports a younger brother from a myocardial infarction. Otherwise reports no significant family history. Social History Notes: She lives at home with her brother. She is independent with her ADLs. She normally walks any assistance but has been using a walker given her recent left hip replacement. She denies any smoking or alcohol use. Meds/Allgy - Home Medications Home Medications: Ambulatory Orders Medication Instructions Recorded Confirmed Pantoprazole [Protonix] 40 mg PO QDAC 09/24/20 09/24/20 - Allergies Allergies/Adverse Reactions: Allergies Allergy/AdvReac Type Severity Reaction Status Date / Time iodine Allergy Severe Blisters/Ra Verified 09/24/20 12:47 sh/Itching Penicillins Allergy Unknown UNKNOWN Verified 09/24/20 12:47 Review of Systems - Constitutional Constitutional: denies: Fatigue, Fever, Chills, Malaise, Weakness, Poor appetite, Diaphoresis, Night sweats - Eyes Eyes: denies: Pain, Blurred vision, Field loss, Vision loss, Dipolpia - Ears, Nose & Throat Ears, Nose & Throat: denies: Ear pain, Vertigo, Nosebleeds, Sore throat, Bleeding gums - Cardiovascular Cariovascular: reports: Palpitations, Chest pain. denies: Lightheadedness, Syncope, Exertional dyspnea, Decr. exercise tolerance - Respiratory Respiratory: reports: SOB with exertion. denies: Cough, Sputum production, W heezing, Hemoptysis, Orthopnea, SOB at rest - Gastrointestinal Gastrointestinal: denies: Abdominal pain, Constipation, Diarrhea, Rectal bleeding, Black stools, Bloody stools, Nausea, Vomiting, Andrea blood emesis, Coffee grounds emesis - Genitourinary Genitourinary: denies: Dysuria, Frequency - Musculoskeletal Musculoskeletal: denies: Muscle pain, Muscle aches, Limited range of motion, Joint swelling - Integumentary Integumentary: denies: Rash, Lesions - Neurological Neurological: denies: General weakness, Focal weakness, Headache, Dizziness, Numbness, Pre-existing deficit, Abnormal gait, Seizures, Incoordination, Slurred speech - Psychiatric Psychiatric: denies: Depression, Anxiety, Suicidal - Endocrine Endocrine: denies: Polyuria - Hematologic/Lymphatic Hematologic/Lymphatic: denies: Anemia, Bruising, Recurrent infections Exam - Vital Signs Vital Signs: Vital Signs x48h Temp Pulse Resp BP Pulse Ox 09/24/20 14:08 60 18 161/82 H 96 09/24/20 13:43 64 16 157/79 H 96 09/24/20 12:47 36.8 C 93 20 140/97 H 96 - Physical Exam General Appearance: positive: No acute distress, Alert. negative: Lethargic Eyes Bilateral: positive: Normal inspection, PERRL, No lid inflammation ENT: positive: ENT inspection nml, No signs of dehydration. negative: Purulent nasal drainage Neck: positive: Nml inspection, Thyroid nml, Trachea midline. negative: Thyromegaly, Tracheal deviation Respiratory: positive: Chest non-tender, No respiratory distress, Breath sounds nml. negative: Wheezes, Rales, Rhonchi Cardiovascular: positive: Regular rate & rhythm, No murmur. negative: Tachycardia, Bradycardia, Systolic murmur, Diastolic murmur Peripheral Pulses: positive: 2+ Abdomen: positive: Non-tender, Nml bowel sounds, No distention. negative: Tenderness, Guarding, Rebound Back: positive: Nml inspection Skin: positive: Color nml, No rash, Warm, Dry. negative: Cyanosis, Diaphoresis, Pallor Extremities: positive: Non-tender, Full ROM, Nml appearance. negative: Pedal edema, Calf tenderness, Joint swelling Neurologic/Psychiatric: positive: Oriented x3, Motor nml, Sensation nml, Mood/affect nml. negative: Weakness, Sensory loss, Facial droop, Slurred/abnml speech, Depressed mood/affect Sepsis Event Note (H) - Evaluation Current Stage of Sepsis: Ruled out Conclusion/Plan - Problem List (1) Chest pain Conclusion/Plan: Patient reported she feel chest pressure like somebody sitting on her chest. But the same time she report Tylenol release her chest pain. Her initiated troponin is negative, EKG is minimal changed from previous. ECHO reveals unremarkable. We will continue serial troponin test, ER already give patient 325 mg aspirin, will continue give patient baby aspirin, liptor, and lipid panel test. pt is obese, order Lexiscan stress test on tomorrow. Morphine and Tylenol for pain control PRN Qualifiers: Chest pain type: unspecified Qualified Code(s): R07.9 - Chest pain, unspecified (2) Gastric ulcer Conclusion/Plan: Patient has history of gastric ulcers, We will give patient Protonix intravenous, GI cocktail as needed (3) GERD (gastroesophageal reflux disease) Conclusion/Plan: Patient report his symptoms is more worse in the night with flat position but better in the daytime. chest pain started with upper GI then move into her neck along with middlesternal.We will treated with a GI cocktail, and Protonix. (4) HTN (hypertension) Conclusion/Plan: Patient has no blood pressure meds in home meds list for her HTN. Now her blood pressure is fine, will continue vital signs monitor, order BP meds as needed (5) Dehydration Conclusion/Plan: Patient has a slightly elevated creatinine, clinically indicated patient has dehydration with a dry mouth. ER already give patient 1 L of normal saline, will continue intravenous IV fluids for patient - Lab Results Fish Bones: 09/24/20 13:05 09/24/20 13:05 Core Measures - Anticipated LOS I expect patient to be DC'd or transferred within 96 hours.: Yes - DVT/VTE - Prophylaxis VTE/DVT Device ordered at admit?: Yes VTE/DVT Prophylaxis med ordered at admit?: Yes
[2020-09-24] MEDS ORDERED: PANTOPRAZOLE 40 MG TABLET PO SCH (15:00)
--- NOTE | 2020-09-24 15:47 | PHARMACY PROGRESS NOTE ---
- Best Possible Medication History Admit Date and Time: 09/24/20 1403 Processed by: Pharmacy Medication History completed: Yes Patient Interview: Pt interview ONLY source As the person ultimately responsible for medication therapy, providers are able to order a medication from an existing home medication list in [facility] via the "Reconcile Routine" prior to Confirmation of that medication by emotional support teacher. Such practice is discouraged except when the physician, in their clinical judgment, deems that a medical need exists for a medication without regard to previous use.
[2020-09-24] MEDS ORDERED: GI COCKTAIL 120 ML BOTTLE PO SCH (16:23)
[2020-09-24] MEDS: ACETAMINOPHEN 325 MG TABLET PO PRN ×2 (16:24→23:08)
[2020-09-24] MEDS: SODIUM CHLORIDE FLUSH 0.9% 10 ML SYRINGE IVP SCH (16:26)
[2020-09-24 17:48] LABS: C. PNEUMONIAE- RESP PCR PANEL NOT DETECTED
[2020-09-24] MEDS ORDERED: ATORVASTATIN 40 MG TABLET PO SCH (21:00)
[2020-09-24] MEDS: GI COCKTAIL 120 ML BOTTLE PO PRN (23:09)
[2020-09-25] MEDS ORDERED: SODIUM CHLORIDE 0.9% 1,000 ML IV SCH (01:00)
[2020-09-25] MEDS: SODIUM CHLORIDE FLUSH 0.9% 10 ML SYRINGE IVP SCH ×3 (01:37→16:05)
[2020-09-25 05:38] LABS: CALCIUM 9.1 mg/dL (8.5-10.3)
[2020-09-25 05:45] LABS: CHOL/HDL RATIO 3.6 (<4.4); CHOLESTEROL 160 mg/dL; HDL CHOLESTEROL 44 mg/dL; LDL CHOLESTEROL,CALCULATED 96 mg/dL; LDL/HDL RATIO 2.2 (<4.4); VLDL CHOLESTEROL 20 mg/dL
[2020-09-25 06:07] LABS: BASOPHILS % (AUTO) 0.6 %; EOSINOPHILS # (AUTO) 0.2 10^3/uL (0.0-0.7); EOSINOPHILS % (AUTO) 3.2 %; HGB - HEMOGLOBIN 13.8 g/dL (12.0-16.0); LYMPHOCYTES # (AUTO) 1.8 10^3/uL (1.5-3.5); LYMPHOCYTES % (AUTO) 26.7 %; MEAN CORPUSCULAR HEMOGLOBIN 30.6 pg (27.0-31.0); MEAN CORPUSCULAR HGB CONC 33.8 g/dL (32.0-36.0); MEAN CORPUSCULAR VOLUME 90.5 fL (81.0-99.0); MEAN PLATELET VOLUME 9.9 fL (7.9-10.8); MONOCYTES # (AUTO) 0.7 10^3/uL (0.0-1.0); MONOCYTES % (AUTO) 9.6 %; NEUTROPHILS # (AUTO) 4.1 10^3/uL (1.5-6.6); NEUTROPHILS % (AUTO) 59.2 %; PLT - PLATELET COUNT 232 10^3/uL (130-450); RED BLOOD COUNT 4.51 10^6/uL (4.20-5.40); RED CELL DISTRIBUTION WIDTH 15.8 % (12.0-15.0); WHITE BLOOD COUNT 6.9 x10^3/uL (4.8-10.8)
[2020-09-25] MEDS: GI COCKTAIL 120 ML BOTTLE PO PRN (06:28)
[2020-09-25] MEDS ORDERED: PANTOPRAZOLE 40 MG VIAL IVP SCH (07:00)
[2020-09-25] MEDS ORDERED: ASPIRIN CHEW 81 MG TABLET PO SCH (09:00)
[2020-09-25] MEDS ORDERED: ENOXAPARIN 40 MG/0.4 ML SYRINGE SUBQ SCH (09:00)
[2020-09-25] MEDS ORDERED: AMINOPHYLLINE 500 MG/20 ML VIAL ONE (13:26)
[2020-09-25] MEDS ORDERED: REGADENOSON 0.4 MG/5 ML SYRINGE IVP ONE ×2 (13:26→16:23)
[2020-09-25] MEDS ORDERED: TC-99M/TETROFOSMIN 1.38 MG/30 ML VIAL IVP ONE (16:24)
--- NOTE | 2020-09-25 16:43 | Nuclear Medicine Report ---
PROCEDURE: Rest and pharmacological stress myocardial perfusion SPECT with gated imaging and ejection fraction INDICATIONS: chest pain RADIOPHARMACEUTICAL: 11.3 mCi Tc-99m Myoview IV at rest and 33.0 mCi Tc-99m Myoview IV at peak exerc ise. [id number] was performed. TECHNIQUE: Radiopharmaceutical was injected at peak stress test, and also at rest. SPECT images wer e obtained. SPECT myocardial perfusion images were displayed in short axis, horizontal long axis, an d vertical long axis views. Gated images were reviewed using AutoQUANT software. COMPARISON: None available. FINDINGS: Raw data: There is good myocardial labeling by radiotracer. No significant motion artifacts. Lung- to-heart ratio is 0.38 (normal is less than 0.38 for tetrafosmin tracer). Left ventricle function: Gated images demonstrate normal left ventricle wall thickening. No segment al wall motion abnormality. No transient ischemic dilation; TID is 0.96 (normal less than 1.3). The left ventricle resting end-diastolic volume is normal. Left ventricle stress ejection fraction is 7 2%; normal values are above 45%. Myocardial perfusion: There is normal distribution of activity in the left and right ventricular nilsa cardium. No fixed or reversible perfusion defects. IMPRESSION: 1. Normal myocardial perfusion images. No perfusion defect to suggest myocardial ischemia or infarct. 2. Normal left ventricular volume and systolic function. 3. Please correlate with stress ECG result. PQRS ATTESTATIONS: Measure 322 - Is this imaging test primarily performed on a low-risk surgery patient for preoperative evaluation within 30 days preceding their low-risk non-cardiac surgery? Low-risk surgery is defined as cardiac or myocardial infarction less than 1%, including (but not limited to) endoscopic pr ocedures, superficial procedures, cataract surgery, and excisional breast surgery: Answer: No Measure 323 - Is this imaging test performed primarily for the monitoring of an asymptomatic patient who had percutaneous coronary intervention on the visit date or within 2 years of the visit date? An swer: No Measure 324 - Is this imaging test performed primarily for the initial detection and risk assessment on an asymptomatic, low coronary heart disease patient? Low CHD risk definition = clinicians should consider the maximum number of available patient factors used to estimate risk based on [place] (A TP III criteria), typically age, gender, diabetes, smoking status, and use of blood pressure medicati on, and integrate age appropriate estimates for missing elements, such as LDL or standard blood press ure. Answer: No Reviewed by: Aj Bustamante MD on 09/25/2020 4:42 PM PST Approved by: Aj Bustamante MD on 09/25/2020 4:42 PM PST Station ID: [id number]
[2020-09-25 16:50] VITALS: BP 142/68
--- NOTE | 2020-09-25 17:14 | Discharge Plan ---
Discharge Plan Problem Reviewed?: Yes Disposition: Home, Self Care Condition: Stable Diet: Regular Activity Restrictions: Activity as Tolerated Shower Restrictions: No (fall precaution) Instruction Topics: ED Chest Pain Atypical Unkn Cause, GERD, GERD Lifestyle Changes, GERD Meds, Acid Reflux Health Concerns: atypical chest pain Plan of Treatment: your chest pain is unlikely relative to your heart. You stress test and ECHO, and EKG all are unremarkable, and your serial troponin are negative as well. All your test does not suggest you have acute myocardial infarction. Your atypical chest pain is more likely relative to your GERD/reflux. please revise above education to prevention of your GERD/Reflux. Care Goals: stabilization and improvement of your medical conditions. Assessment: discussed the care plan with you, you understood Additional Instructions or Follow Up instructions: You may followup with your PCP in one to two weeks. Should your symptoms return or worsen, you may present ER or call 911 for help. No Smoking: If you smoke, Please STOP! Call for help. Follow-up with: Trisha Tanner DO [Primary Care Provider] -
--- NOTE | 2020-09-25 17:24 | DISCHARGE SUMMARY ---
Discharge Summary Admit Date: 09/24/20 Discharge Date: 09/25/20 Discharging Provider: Bebo Callejas Primary Care Provider: Dr. Meghana Tanner Condition at Discharge: Stable Discharge Disposition: 01 Home, Self Care Discharge Facility Name: home - DIAGNOSES Discharge Diagnoses with Status of Each Condition: (1) Chest pain pt's chest pain is unlikely relative to her heart. her stress test and ECHO, and EKG all are unremarkable, and three times of serial troponin are negative as well. All her test does not suggest you have acute myocardial infarction. Clinically her atypical chest pain is more likely relative to her GERD/reflux. continue home PPI, educate pt prevention of reflux, followup with her PCP. (2) Gastric ulcer stable, continue home PPI, followup with her PCP continue management. (3) GERD (gastroesophageal reflux disease) resume home PPI (4) HTN (hypertension) stable (5) Dehydration resolved - HPI History of Present Illness: This is a 80-year-old woman with a past medical history of hypertension, angina, gastro ulcer who present ER complain of chest pain. Pt reportshe has had on and off chest pressure for couple of weeks. she feels her chest pressure like someone siting at her chest. she report her chest pain usually start on upper gastric then gradually along with substernal to middle sternal and move to her neck area. It worsen at the night, better at the daytime. Today it has been going on all day. She does report sometime she feels some shortness of breath and palpitation. Patient denies fever, chill, Cough, wheezing, Nausea, vomiting,Abdominal pain. Initial troponin test is negative, EKG present very minimal subtle EKG changes from the previous. CXR is unremarkable. pt is admitted for chest pain work up to r/o ACS Discussed the care goal with the patient, patient request full code - HOSPITAL COURSE Hospital Course: pt was admitted for chest pain. pt had stress test, ECHO, three times of troponin test, and EKG all are unremarkable. Clinically pt's chest pain are atypical chest pain, likely relative to reflux disease. chest pain usually start on upper gastric then gradually along with substernal to middle sternal and move to her neck area. It worsen at the night, better at the daytime. pt has no distress in the hospital. pt was d/c as hemodynamic stable condition. - ALLERGIES Allergies/Adverse Reactions: Allergies Allergy/AdvReac Type Severity Reaction Status Date / Time iodine Allergy Severe Blisters/Ra Verified 09/24/20 12:47 sh/Itching Penicillins Allergy Unknown UNKNOWN Verified 09/24/20 12:47 - MEDICATIONS Home Medications: Ambulatory Orders Medication Instructions Recorded Confirmed Pantoprazole [Protonix] 40 mg PO QDAC 09/24/20 09/24/20 - PHYSICAL EXAM AT DISCHARGE General Appearance: positive: No acute distress, Alert. negative: Lethargic Eyes Bilateral: positive: Normal inspection, PERRL, No lid inflammation ENT: positive: ENT inspection nml, No signs of dehydration. negative: Purulent nasal drainage Neck: positive: Nml inspection, Thyroid nml, Trachea midline. negative: Thyromegaly, Tracheal deviation Respiratory: positive: Chest non-tender, No respiratory distress, Breath sounds nml. negative: Wheezes, Rales, Rhonchi Cardiovascular: positive: Regular rate & rhythm, No murmur. negative: Tachyc ardia, Bradycardia, Systolic murmur, Diastolic murmur Peripheral Pulses: positive: 2+ Abdomen: positive: Non-tender, Nml bowel sounds, No distention. negative: Tenderness, Guarding Back: positive: Nml inspection. negative: CVA tenderness (R), CVA tenderness (L) Skin: positive: Color nml, No rash, Warm, Dry. negative: Cyanosis, Diaphoresis, Pallor, Skin rash Extremities: positive: Non-tender, Full ROM, Nml appearance. negative: Calf tenderness Neurologic/Psychiatric: positive: Oriented x3, Motor nml, Sensation nml, Mood/affect nml. negative: Weakness, Sensory loss, Facial droop, Slurred/abnml speech, Depressed mood/affect - LABS Result Diagrams: 09/25/20 05:55 09/25/20 05:21 - SEPSIS Current Stage of Sepsis: Ruled out - FOLLOW UP Follow Up: your chest pain is unlikely relative to your heart. You stress test and ECHO, and EKG all are unremarkable, and your serial troponin are negative as well. All your test does not suggest you have acute myocardial infarction. Your atypical chest pain is more likely relative to your GERD/reflux. please revise above education to prevention of your GERD/Reflux. You may followup with your PCP in one to two weeks. Should your symptoms return or worsen, you may present ER or call 911 for help. - TIME SPENT Time Spent in Discharge (Minutes): 30
--- NOTE | 2020-09-26 00:42 | CARDIAC PROCEDURE NOTE ---
DATE OF SERVICE: 09/25/2020 Physician: Isis Bautista MD INDICATION: Chest pain. CARDIAC RISK FACTORS 1. Advanced age. 2. Hypertension. 3. Unknown cholesterol status. DESCRIPTION OF PROCEDURE: After signing informed consent, the patient underwent a Lexiscan pharmaceutical stress test with nuclear myocardial perfusion imaging. RESTING HEART RATE: 62. PEAK HEART RATE: 91. RESTING BLOOD PRESSURE: 143/81. PEAK BLOOD PRESSURE: 210/69. Lexiscan was infused per protocol. The patient developed chest pain similar to her presentation chest pain, which she rated 8/10, and mild shortness of breath. She had no headache or nausea. The chest pain resolved spontaneously in 4 minutes. Oxygen saturation was 95-98% on room air throughout the test. RESTING EKG: Normal sinus rhythm, within normal limits. EKG AT PEAK: No new ST segment or T-wave changes. SUMMARY 1. Normal resting EKG. 2. No ischemic changes by EKG criteria on this pharmaceutical stress test. 3. Nuclear images reported separately and showed no areas of ischemia and normal left ventricular ejection fraction. 4. This patient's cardiac risk based on all the above: Low. cc: ONDINA TD: 09/25/2020 16:47 STEVE
== END 2020-09-25 18:00 | disposition home or self-care (01) ==
LOC: ED 12:42 → MS2 14:03
PROVIDERS: ADMIT Nurse Practitioner Gerontology; ATTEND Nurse Practitioner Gerontology
DX: R07.89 Other chest pain (principal); K25.9 Gastric ulcer, unspecified as acute or chronic, without hemorrhage or perforation; K21.9 Gastro-esophageal reflux disease without esophagitis; I10 Essential (primary) hypertension; E86.0 Dehydration; Z96.642 Presence of left artificial hip joint; Z20.828 Contact with and (suspected) exposure to other viral communicable diseases
CPT/HCPCS: 36415; 71045; 78452; 80048; 80053; 80061; 83690; 84484; 85025; 86769; 87631; 93005; 93017; 93306; 96374; 99285; A9270; A9500; A9502; G0378; J1650; J2785; 0202U; 83721

== ENCOUNTER 2021-02-18 08:05 | Outpatient (CLI) | payer MEDICARE, OTHER ==
[2021-02-18 12:28] LABS: ALBUMIN/GLOBULIN RATIO 1.4 (1.0-2.2); ALKALINE PHOSPHATASE 87 IU/L (42-121); ALT ALANINE AMINOTRANSFERASE 27 IU/L (10-60); AST ASPARTATE AMINOTRANSFERASE 29 IU/L (10-42); BILIRUBIN,TOTAL 0.8 mg/dL (0.2-1.0); BUN - BLOOD UREA NITROGEN 16 mg/dL (6-20); CALCIUM 9.5 mg/dL (8.5-10.3); CARBON DIOXIDE - CO2 23 mmol/L (21-32); CHLORIDE 108 mmol/L (101-111); CHOL/HDL RATIO 3.5 (<4.4); CHOLESTEROL 174 mg/dL; GFR - MDRD 53 (>89); GLUCOSE 112 mg/dL (70-100); HDL CHOLESTEROL 50 mg/dL; LDL CHOLESTEROL,CALCULATED 102 mg/dL; SODIUM 141 mmol/L (135-145); TOTAL PROTEIN 6.9 g/dL (6.7-8.2); TRIGLYCERIDES 108 mg/dL; VLDL CHOLESTEROL 22 mg/dL
[2021-02-18 13:15] LABS: BASOPHILS # (AUTO) 0.1 10^3/uL (0.0-0.1); BASOPHILS % (AUTO) 1.1 %; EOSINOPHILS # (AUTO) 0.3 10^3/uL (0.0-0.7); EOSINOPHILS % (AUTO) 3.8 %; HCT - HEMATOCRIT 43.1 % (37.0-47.0); HGB - HEMOGLOBIN 14.1 g/dL (12.0-16.0); LYMPHOCYTES # (AUTO) 1.6 10^3/uL (1.5-3.5); LYMPHOCYTES % (AUTO) 24.9 %; MEAN CORPUSCULAR HEMOGLOBIN 30.8 pg (27.0-31.0); MEAN CORPUSCULAR HGB CONC 32.7 g/dL (32.0-36.0); MEAN CORPUSCULAR VOLUME 94.1 fL (81.0-99.0); MEAN PLATELET VOLUME 10.3 fL (7.9-10.8); MONOCYTES # (AUTO) 0.7 10^3/uL (0.0-1.0); MONOCYTES % (AUTO) 10.8 %; NEUTROPHILS # (AUTO) 3.9 10^3/uL (1.5-6.6); NEUTROPHILS % (AUTO) 58.9 %; PLT - PLATELET COUNT 307 10^3/uL (130-450); RED BLOOD COUNT 4.58 10^6/uL (4.20-5.40); RED CELL DISTRIBUTION WIDTH 14.5 % (12.0-15.0); WHITE BLOOD COUNT 6.6 x10^3/uL (4.8-10.8)
== END 2021-02-18 23:59 | disposition home or self-care (01) ==
LOC: LAB.WCP 08:05
PROVIDERS: ATTEND Family Medicine
DX: I10 Essential (primary) hypertension (principal); E78.5 Hyperlipidemia, unspecified
CPT/HCPCS: 36415; 80053; 80061; 83721; 85025

== ENCOUNTER 2021-05-21 09:24 | Outpatient (CLI) | payer MEDICARE, OTHER ==
[2021-05-21 12:25] LABS: CALCIUM 9.1 mg/dL (8.5-10.3); CREATININE 1.2 mg/dL (0.4-1.0); POTASSIUM 4.4 mmol/L (3.5-5.0)
== END 2021-05-21 23:59 | disposition home or self-care (01) ==
LOC: LAB.WCP 09:24
PROVIDERS: ATTEND Family Medicine
DX: R60.9 Edema, unspecified (principal)
CPT/HCPCS: 36415; 80048

== ENCOUNTER 2022-11-21 10:54 | Outpatient (CLI) | payer MEDICARE, OTHER ==
--- NOTE | 2022-11-22 11:51 | Mammography Report ---
BILATERAL DIGITAL SCREENING MAMMOGRAM 3D/2D: 11/21/2022 CLINICAL: Routine screening. Comparison is made to exams dated: 09/05/2019 mammogram and 09/08/2017 mammogram - [facility]. There are scattered areas of fibroglandular density in both breasts (category b / 25%-50% glandular t issue). No significant masses, calcifications, or other findings are seen in either breast. There has been no significant interval change. IMPRESSION: NEGATIVE There is no mammographic evidence of malignancy. A 1 year screening mammogram is recommended. Based on the Tyrer Cuzick model (a risk assessment model) the patients lifetime risk is 0.4% and her 10 year risk is 0.0%. According to the ACR, ACS, and NCCN guidelines, an annual breast MRI exam alessandra g with mammogram is recommended if the patients lifetime risk is 20% or greater. This exam was interpreted at Station ID: [id number]. NOTE: For mammograms, a report in lay terms will be sent to the patient. Approximately 15% of breast malignancies will not be visualized mammographically. In the management of a palpable breast mass, a negative mammogram must not discourage biopsy of a clinically suspicious lesion. Electronically Signed By: Kd simmons/angélica:11/21/2022 16:33:35 ACR BI-RADS Category 1: Negative 3341F PARENCHYMAL PATTERN: (A) - The breast(s) demonstrate(s) scattered fibroglandular densities. BI-RADS CATEGORY: (1) - 1 RECOMMENDATION: (ANNUAL) - Recommend routine annual screening mammography. [id number] 1 year screening LATERALITY: (B)
== END 2022-11-21 10:55 | disposition home or self-care (01) ==
LOC: DI.N 10:54
DX: Z12.31 Encounter for screening mammogram for malignant neoplasm of breast (principal)

== ENCOUNTER 2023-02-08 10:30 | Outpatient (CLI) | payer MEDICARE, OTHER ==
[2023-02-08 11:40] LABS: BILIRUBIN,URINE NEGATIVE (NEGATIVE); GLUCOSE, URINE (UA) NEGATIVE (NEGATIVE); KETONES,URINE (UA) NEGATIVE (NEGATIVE); LEUKOCYTE ESTERASE, URINE LARGE (NEGATIVE); NITRITE,URINE NEGATIVE (NEGATIVE); OCCULT BLOOD,URINE TRACE-LYSE (NEGATIVE); PROTEIN,URINE NEGATIVE (NEGATIVE); UROBILINOGEN,URINE 0.2 (NORMAL) E.U./dL (NORMAL)
[2023-02-08 11:48] LABS: BACTERIA,URINE Moderate /HPF (None Seen); CLARITY,URINE SL. CLOUDY (CLEAR); RBC,URINE 0-5 /HPF (0-5); SQUAMOUS EPITHELIAL CELL,UR MOD Squamous (<= Few); WBC,URINE >25 /HPF (0-5)
== END 2023-02-08 23:59 | disposition home or self-care (01) ==
LOC: LAB.N 10:30
PROVIDERS: ATTEND Physician Assistant
DX: R30.0 Dysuria (principal)
CPT/HCPCS: 81001; 87086

== ENCOUNTER 2024-02-05 11:00 | Outpatient (CLI) | payer MEDICARE, OTHER | END 2024-02-05 11:15 | disposition home or self-care (01) | LOC: LAB.N 11:00 | PROVIDERS: ATTEND Physician Assistant Medical | DX: R82.81 Pyuria (principal) | CPT/HCPCS: 87086 ==

== ENCOUNTER 2024-05-15 08:59 | Outpatient (CLI) | payer MEDICARE, OTHER | END 2024-05-15 09:00 | disposition home or self-care (01) | LOC: DI 08:59 | PROVIDERS: ATTEND Nurse Practitioner Family | DX: I48.91 Unspecified atrial fibrillation (principal); R06.02 Shortness of breath; I10 Essential (primary) hypertension; I08.0 Rheumatic disorders of both mitral and aortic valves; I27.20 Pulmonary hypertension, unspecified | CPT/HCPCS: 93307 ==

== ENCOUNTER 2024-05-24 08:48 | Outpatient (CLI) | payer MEDICARE, OTHER ==
--- NOTE | 2024-05-24 12:13 | XRAY Report ---
PROCEDURE: Lumbar Spine 4V INDICATIONS: LOW BACK PAIN < 3MONTHS TECHNIQUE: 4 views of the lumbar spine were acquired. COMPARISON: None. FINDINGS: Bones: There is trace anterolisthesis of L3 on L4 and L4 on L5. Overall moderate degenerative changes with facet arthropathy, disc space height loss, and osteophytes. No acute vertebral body height loss or traumatic subluxation. On oblique views, no definite pars defects are identified, although evaluation is limited due to over lapping bowel gas and degenerative changes. 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 Moderate fecal loading. IMPRESSION: Multilevel trace spondylolisthesis and moderate spondylosis. If there is high concern for further derangement, consider MRI evaluation. Reviewed by: Joseph Diggs MD on 05/24/2024 12:12 PM PDT Approved by: Joseph Diggs MD on 05/24/2024 12:12 PM PDT Station ID: [id number]
--- NOTE | 2024-05-24 12:14 | XRAY Report ---
PROCEDURE: Hip w/Pelvis 2-3V RT INDICATIONS: HIP JOINT PAIN, RIGHT TECHNIQUE: 3 views of the hip were acquired. COMPARISON: 01/28/2019 FINDINGS: Bones: Bilateral hip arthroplasties. Acute displaced fracture or dislocation. Pubic symphysis and lavelle mbosacral degenerative changes partially seen. Soft tissues: No suspicious calcifications. IMPRESSION: Bilateral hip arthroplasties. No acute radiographic abnormality. If there is further concern, consider cross-sectional imaging versus multiphase nuclear medicine bone scan. Reviewed by: Joseph Diggs MD on 05/24/2024 12:13 PM PDT Approved by: Joseph Diggs MD on 05/24/2024 12:13 PM PDT Station ID: [id number]
== END 2024-05-24 08:49 | disposition home or self-care (01) ==
LOC: DI.N 08:48
PROVIDERS: ATTEND Nurse Practitioner Family
DX: M47.816 Spondylosis without myelopathy or radiculopathy, lumbar region (principal); M43.16 Spondylolisthesis, lumbar region; M25.551 Pain in right hip; Z96.643 Presence of artificial hip joint, bilateral